=== PATIENT | female | born 1955 | race African-American/Black ===

== ENCOUNTER 2018-07-28 07:46 | Observation (INO) | payer MEDICARE, BC ==
[~2018-07-28] VITALS: Ht 162.6 cm; Wt 85.0 kg
[~2018-07-28 07:46] MED LIST: AMLODIPINE5 MG PO; AMOXIL250 MG/5 M PO; GABAPENTIN300 MG PO; HYDROCHLORO25 MG/TAB PO; HYDROCHLOROT25 MG PO; LISINOP/HCTZ1 TA1 PO; LISINOPRIL10 MG PO; LISINOPRIL20 M1 PO; LOPRESSOR 550 MG/TAB PO; LORTAB 7.57.5 MG PO; PREDNISONE20 MG PO; ROBITUSSIN AC10 ML PO; TRAMADOL HCL50 MG PO; VENTOLIN HFA IN; catapres PO
--- NOTE | 2018-07-28 07:56 | NUR ---
PATIENT TO ROOM VIA EMS AND PHYSICIAN NOTIFIED OF PATIENT STATUS
[2018-07-28 08:33] LABS: IMMATURE GRANULOCYTES 0.3 % (0.0-5.0); MEAN CELL VOLUME 84.1 fL CALC (80.0-100.0); MEAN CORPUSCULAR HGB 26.8 pG CALC (26.0-32.0); MEAN CORPUSCULAR HGB CONC 31.9 g/L CALC (32.0-36.0); NEUT# 7.39 thou/uL (2.00-7.15); RED BLOOD COUNT 5.03 mill/uL (4.20-5.60); RED CELL DISTRI WIDTH 16.9 % (11.5-15.5)
[2018-07-28 08:39] LABS: HEMATOCRIT 42.3 % (37.0-47.0); HEMOGLOBIN 13.5 g/dl (12.0-16.0)
[2018-07-28 08:40] LABS: URINE BILIRUBIN - DIPSTICK NEGATIVE (NEGATIVE); URINE BLOOD DIPSTICK SMALL (NEGATIVE); URINE COLOR YELLOW; URINE GLUCOSE - DIPSTICK NEGATIVE (NEGATIVE); URINE KETONE NEGATIVE (NEGATIVE); URINE LEUK ESTERASE NEGATIVE (NEGATIVE); URINE NITRITE - DIPSTICK NEGATIVE (Negative); URINE PH 6.5 (4.5-8.0); URINE PROTEIN - DIPSTICK 30 mg/dL (NEG-TRACE); URINE SPECIFIC GRAVITY 1.015; URINE UROBILINOGEN - DIPSTICK 0.2 E.U./dL (0.2)
[2018-07-28 08:58] LABS: ALKALINE PHOSPHATASE 89 u/l (38-126); BUN 12 mg/dL (8-23); BUN/CREATININE RATIO 24 (12-20 (CALC)); CARBON DIOXIDE 25 mmol/l (22-30); CHLORIDE 104 mmol/l (95-108); CREATININE 0.5 mg/dL (0.5-1.0); GFR > 60 ML/MIN (>=60 (CALC)); GFR FOR AFR.AMER. > 60 ML/MIN (>=60 (CALC)); LIPASE 57 u/l (23-300); SGOT/AST 15 u/l (9-36); SODIUM 140 mmol/l (137-146); TOTAL PROTEIN 7.6 g/dL (6.3-8.2)
[2018-07-28 08:59] LABS: URINE SQUAMOUS EPITHELIAL CELL FEW EPI/hpf (0-FEW)
--- NOTE | 2018-07-28 09:00 | NUR ---
PATIENT RESTING AWAITING LAB AND RADIOLOGY RESULTS. PATIENT STATES NAUSEA DECREASED.
[2018-07-28 09:01] LABS: ALBUMIN 4.4 g/dL (3.2-5.0); ANION GAP 15 (6-22 (CALC)); BILIRUBIN, TOTAL 0.4 mg/dL (0.0-1.4); POTASSIUM 3.8 mmol/l (3.5-5.1)
--- NOTE | 2018-07-28 10:00 | NUR ---
PATIENT RESTING AWAITNG RADIOLOGY RESULTS PATIENT STATES PAIN 5 ON 0-10 SCALE
--- NOTE | 2018-07-28 10:51 | NUR ---
PATIENT RESTING AWAITNG DISPOSITION. PATIENT STATES PAIN IMPROVED SLIGHTYL FROM BEING PREVIOUSLY MEDICATED PAIN 5 ON 0-10 SCALE. MD NOTIFIED
--- NOTE | 2018-07-28 11:45 | NUR ---
ATTEMPTED TO CALL REPORT PATIENT UNAVAILABLE
--- NOTE | 2018-07-28 12:08 | NUR ---
SECOND ATTEMPT TO CALL REPORT NURSE STILL IN ANOTHER [facility] ROOM AND UNABLE TO COME TO THE PHONE
--- NOTE | 2018-07-28 12:25 | NUR ---
REPORT CALLED TO MED SURG
[2018-07-28 12:39] VITALS: BP 180/89
--- NOTE | 2018-07-28 12:48 | NUR ---
REPORT RECEIVED FROM CAR IN ED, PT ARRIVED ON UNIT @ 1232 VIA STRETCHER BY ED STAFF, ALERT AND ORIENTED X 4, ORIENTED TO ROOM AND CALL WHITE. PT C/O ABD PAIN AT 10/10 AT THIS TIME, VITAL SIGNS MEASURED AND RECORDED, CALL WHITE IN REACH, WILL CONTINUE TO MONITOR.
[2018-07-28 15:30] VITALS: BP 130/77
--- NOTE | 2018-07-28 17:40 | NUR ---
DR LEGGETT HERE ROUNDING, DISCUSSED PLAN OF CARE TO GIVE IV FLUIDS AND ANALGESICS WHICH HE WILL PROCESS.
--- NOTE | 2018-07-28 17:52 | NUR ---
DR LEGGETT HERE ROUNDING, DISCUSSED PLAN OF CARE AND WRITING ORDERS AT THIS TIME. PT JUST HAD EPISODE VOMITUSMD AWARE AND WILL ADDRESS CONDITION.
[2018-07-28 18:21] LABS: CHOLESTEROL HDL RATIO 3.3 (<4.4 (CALC))
[2018-07-28 18:29] VITALS: BP 155/69
--- NOTE | 2018-07-28 19:23 | NUR ---
DR. LEGGETT PLACED CONSULTATION IN FOR WITH THIS PATIENT. CLIENT PORTFOLIO MANAGER CALLED REGARDING PT AT [phone]. GAVE HIM NAME, DIAGNOSIS, AND ROOM NUMBER. DR. SNYDER STATED HE WILL LOOK AT ALL THE TESTS ON PATIENT.
--- NOTE | 2018-07-28 19:33 | NUR ---
REPORT RECEIVED FROM YULI DOMÍNGUEZ. PT RESTING IN BED, ALERT AND ORIENTED, PT STATES HER PAIN IS MUCH BETTER AND IS NOW ONLY A 2/10. SAFETY PRECAUTIONS IN PLACE. PT ENCOURAGED TO USE CALL WHITE. WILL CONTINUE TO MONITOR.
[2018-07-28 19:45] VITALS: BP 144/89
--- NOTE | 2018-07-28 20:30 | NUR ---
PT RESTING IN BED, ALERT AND ORIENTED. RESPIRATIONS EVEN AND UNLABORED ON RA, LUNGS SOUND COARSE. TELE IN PLACE. # 22 LFA IN FUSSING D5 1/2 NS @ 125. PEDAL PULSES STRONG. PT EDUCATED ON NPO DIET. SAFETY PRECAUTIONS IN PLACE. WILL CONTINUE TO MONITOR.
[2018-07-28 22:14] VITALS: BP 129/76
[2018-07-29] VITALS (8 sets, daily range): BP systolic 104–152; BP diastolic 60–87
--- NOTE | 2018-07-29 00:31 | NUR ---
PT RESTING IN BED, WITH EYES CLOSED. RESPIRATIONS EVEN AND UNLABORED ON RA. NO S/S OF DISTRESS AT THIS TIME. WILL CONTINUE TO MONITOR.
--- NOTE | 2018-07-29 04:18 | NUR ---
PT RESTING IN BED. RESPIRATIONS EVEN AND UNLABORED ON RA. NO S/S OF DISTRESS AT THIS TIME. WILL CONTIUE TO MONITOR.
[2018-07-29 05:00] LABS: HEMOGLOBIN 11.6 g/dl (12.0-16.0); IMMATURE GRANULOCYTES 0.3 % (0.0-5.0); MEAN CELL VOLUME 83.6 fL CALC (80.0-100.0); MEAN CORPUSCULAR HGB 26.9 pG CALC (26.0-32.0); MEAN CORPUSCULAR HGB CONC 32.1 g/L CALC (32.0-36.0); NEUT# 4.14 thou/uL (2.00-7.15); RED BLOOD COUNT 4.32 mill/uL (4.20-5.60); RED CELL DISTRI WIDTH 17.1 % (11.5-15.5)
[2018-07-29 05:11] LABS: ALKALINE PHOSPHATASE 58 u/l (38-126); ANION GAP 13 (6-22 (CALC)); BILIRUBIN, TOTAL 0.4 mg/dL (0.0-1.4); BUN 14 mg/dL (8-23); BUN/CREATININE RATIO 21 (12-20 (CALC)); CARBON DIOXIDE 25 mmol/l (22-30); CHLORIDE 103 mmol/l (95-108); CREATININE 0.7 mg/dL (0.5-1.0); GFR > 60 ML/MIN (>=60 (CALC)); GFR FOR AFR.AMER. > 60 ML/MIN (>=60 (CALC)); POTASSIUM 3.6 mmol/l (3.5-5.1); SGOT/AST 24 u/l (9-36); SODIUM 138 mmol/l (137-146)
[2018-07-29 05:13] LABS: HEMATOCRIT 36.1 % (37.0-47.0)
[2018-07-29 05:26] LABS: ALBUMIN 3.3 g/dL (3.2-5.0); TOTAL PROTEIN 5.9 g/dL (6.3-8.2)
--- NOTE | 2018-07-29 07:55 | NUR ---
ASSESSMENT DONE. PT IS A&O X3. PT STATED PAIN IN ABD 10/04. MEDICATED PT WITH DILAUDID SEE EMAR. IVF INFUSING WELL. PT NPO. TELE IN PLACE. SAFETY PRECAUTIONS REINFORCED AND CALL LIGHT IN REACH.
--- NOTE | 2018-07-29 09:31 | NUR ---
DR. SNYDER AT BEDSIDE TO ASSESS PT.
--- NOTE | 2018-07-29 10:29 | NUR ---
PT DOWN IN X-RAY AT THIS TIME.
--- NOTE | 2018-07-29 16:15 | NUR ---
PT IS RESTING IN BED WITH NO S/S OF DISTRESS NOTED. ARMS ELEVATED IN PILLOWS. CALL LIGHT IN REACH.
--- NOTE | 2018-07-29 16:20 | NUR ---
PT USING THE BSC. PT STATED PAIN IN ABD 08/04. TOLD PT PAIN MEDICATION IS NOT DUE YET. PT VERBALIZED UNDERSTANDING. PT DENIES ANY OTHER NEEDS AT THIS TIME. CALL LIGHT IN REACH.
--- NOTE | 2018-07-29 19:10 | NUR ---
REPORT RECEIVED FROM YULI REDMAN. PT RESTING IN BED. ALERT AND ORIENTED. NO S/S OF DISTRESS AT THIS TIME. WILL CONTINUE TO MONITOR.
--- NOTE | 2018-07-29 20:00 | NUR ---
PT RESTING IN BED, ALERT AND ORIENTED. REPIRATIONS EVEN AND UNLABORED ON RA, LUNGS SOUND COARSE THROUGH OUT. #22 LFA INFUSING D5 1/2 NS @ 125 ML/HR, APPEARS HEALTHY. TELE IN PLACE. PT ENCOURAGED TO USE CALL WHITE IF NEEDS SHOULD ARISE. SAFETY PRECAUTIONS IN PLACE. WILL CONTINUE TO MONITOR.
[2018-07-30 00:07] VITALS: BP 113/71
--- NOTE | 2018-07-30 00:57 | NUR ---
PT RESTING IN BED, RESPIRATIONS EVEN AND UNLABORED ON RA, NO S/S OF DISTRESS AT THIS TIME. WILL CONTINUE TO MONITOR.
--- NOTE | 2018-07-30 03:59 | NUR ---
PT RESTING IN BED WITH EYES CLOSED, NO S/S OD DISTRESS AT THIS TIME. SAFETY PRECAUTIONS IN PLACE. WILL CONTINUE TO MONITOR.
[2018-07-30 04:33] VITALS: BP 113/74
[2018-07-30 06:29] LABS: ANION GAP 11 (6-22 (CALC)); BUN 10 mg/dL (8-23); BUN/CREATININE RATIO 15 (12-20 (CALC)); CARBON DIOXIDE 26 mmol/l (22-30); CHLORIDE 105 mmol/l (95-108); CREATININE 0.6 mg/dL (0.5-1.0); GFR > 60 ML/MIN (>=60 (CALC)); GFR FOR AFR.AMER. > 60 ML/MIN (>=60 (CALC)); POTASSIUM 3.7 mmol/l (3.5-5.1); SODIUM 139 mmol/l (137-146)
[2018-07-30 06:36] LABS: HEMATOCRIT 36.6 % (37.0-47.0); HEMOGLOBIN 11.7 g/dl (12.0-16.0); IMMATURE GRANULOCYTES 0.2 % (0.0-5.0); MEAN CELL VOLUME 84.5 fL CALC (80.0-100.0); NEUT# 3.84 thou/uL (2.00-7.15); RED BLOOD COUNT 4.33 mill/uL (4.20-5.60); RED CELL DISTRI WIDTH 17.2 % (11.5-15.5)
--- NOTE | 2018-07-30 07:10 | NUR ---
REPORT WAS RECEIVED FROM RINKU.
[2018-07-30 07:18] VITALS: BP 166/76
--- NOTE | 2018-07-30 08:00 | NUR ---
ASSESSMENT DONE. PT IS A&O X3. PT STATED PAIN IN ABD 06/04 BUT DENIES PAIN MEDICATION. IVF INFUSING WELL. PT DENIES ANY NEEDS AT THIS TIME. CALL LIGHT IN REACH.
[2018-07-30] MEDS ORDERED: catapres PO (08:26)
[2018-07-30] MEDS ORDERED: APRESOLINE10 MG PO (08:26)
[2018-07-30] MEDS ORDERED: PROTONIX40 M3 IV (08:27)
[2018-07-30 10:55] VITALS: BP 156/79
--- NOTE | 2018-07-30 10:56 | NUR ---
DISCUSS WITH PT RE: HER D/C PAPERS. PT VERBALIZED UNDERSTANDING. PT STATED WAITING FOR HER RIDE TO COME. CALL LIGHT IN REACH.
--- NOTE | 2018-07-30 11:20 | NUR ---
PT AMBUALTING IN THE HALLWAY WITH STEADY GAIT. WITH PET FEEDER AT SIDE. CALL LIGHT IN REACH.
--- NOTE | 2018-07-30 12:10 | NUR ---
Discharge instructions given. Patient verbalizes understanding of same. Discharged in stable condition via Wheelchair to Home with volunteer. All belongings sent with pt.
== END 2018-07-30 12:13 | disposition home or self-care (01) ==
LOC: ED 07:46 → ED-I 10:14 → ED 11:05 → MS2 11:06
PROVIDERS: Emergency Medicine; ADMIT Internal Medicine Geriatric Medicine; ATTEND Internal Medicine Geriatric Medicine
PROC: 3E0234Z Introduction of Serum, Toxoid and Vaccine into Muscle, Percutaneous Approach (ICD-10-PCS; principal; 2018-07-29)
DX: K42.0 Umbilical hernia with obstruction, without gangrene (principal); I13.0 Hypertensive heart and chronic kidney disease with heart failure and stage 1 through stage 4 chronic kidney disease, or unspecified chronic kidney disease; I50.30 Unspecified diastolic (congestive) heart failure; N18.9 Chronic kidney disease, unspecified; I25.10 Atherosclerotic heart disease of native coronary artery without angina pectoris; K29.70 Gastritis, unspecified, without bleeding; T46.5X6A Underdosing of other antihypertensive drugs, initial encounter; F17.200 Nicotine dependence, unspecified, uncomplicated; J20.9 Acute bronchitis, unspecified; J44.0 Chronic obstructive pulmonary disease with (acute) lower respiratory infection; M17.0 Bilateral primary osteoarthritis of knee; Z91.120 Patient's intentional underdosing of medication regimen due to financial hardship; Z23 Encounter for immunization
CPT/HCPCS: Q9967; S0164

== ENCOUNTER 2019-06-10 13:34 | Inpatient (IN) | payer MEDICARE, MEDICAID ==
[2019-06-10] VITALS (12 sets, daily range): BP systolic 168–205; BP diastolic 98–110
[~2019-06-10] VITALS: Ht 162.6 cm; Wt 84.1 kg
[~2019-06-10 13:34] MED LIST changes: +APRESOLINE10 MG PO; +PROTONIX40 M3 IV
--- NOTE | 2019-06-10 13:46 | NUR ---
PT TO ROOM PER EMS
--- NOTE | 2019-06-10 14:20 | NUR ---
UNABLE TO ESTABLISH IV ACCESS AFTER MX ATTEMPTS. EDP UPDATED. PT C/O RLQ PAIN 10/10 AND NAUSEA. PT STATES SHE HAS NOT TAKEN BP MEDS TODAY. DENIES CP OR SOB.
--- NOTE | 2019-06-10 14:33 | NUR ---
REPEAT BP AFTER 1 SL NITRO 219/116. EDP MADE DECISION TO INSERT CENTRAL LINE
--- NOTE | 2019-06-10 14:42 | NUR ---
NITRO SL 3 GIVEN PER PROTOCOL. NO NOTABLE CHANGE TO BP. EDP INFORMED.
--- NOTE | 2019-06-10 15:00 | NUR ---
DR RADFORD INSERTED RIJ TRIPLE LUMEN CENTRAL LINE WIHTOUT DIFFICULTY. PT TOLERATED FAIR, EMESIS BRIGHT YELLOW X1, SAT IN HIGH FOWLERS POSITION AND TOLEARTED WELL. MEDICATED ORDERED FOR PAIN AND NAUSEA
[2019-06-10 15:13] LABS: HEMATOCRIT 38.6 % (37.0-47.0); HEMOGLOBIN 12.3 g/dl (12.0-16.0); IMMATURE GRANULOCYTES 0.3 % (0.0-5.0); MEAN CELL VOLUME 83.4 fL CALC (80.0-100.0); MEAN CORPUSCULAR HGB 26.6 pG CALC (26.0-32.0); MEAN CORPUSCULAR HGB CONC 31.9 g/dL CAL (32.0-36.0); NEUT# 7.8 thou/uL (2.00-7.15); RED BLOOD COUNT 4.63 mill/uL (4.20-5.60); RED CELL DISTRI WIDTH 16.4 % (11.5-15.5)
[2019-06-10 15:21] LABS: URINE BILIRUBIN - DIPSTICK NEGATIVE (NEGATIVE); URINE BLOOD DIPSTICK SMALL (NEGATIVE); URINE COLOR YELLOW; URINE GLUCOSE - DIPSTICK NEGATIVE (NEGATIVE); URINE KETONE NEGATIVE (NEGATIVE); URINE LEUK ESTERASE NEGATIVE (NEGATIVE); URINE NITRITE - DIPSTICK NEGATIVE (Negative); URINE PROTEIN - DIPSTICK 100 mg/dL (NEG-TRACE); URINE SPECIFIC GRAVITY >=1.030; URINE UROBILINOGEN - DIPSTICK 0.2 E.U./dL (0.2)
[2019-06-10 15:31] LABS: URINE SQUAMOUS EPITHELIAL CELL FEW EPI/hpf (0-FEW); URINE WBC 0-2 WBC/hpf (0-5)
[2019-06-10 15:32] LABS: ALBUMIN 3.9 g/dL (3.2-5.0); ALKALINE PHOSPHATASE 84 u/l (38-126); ANION GAP 9 (6-22 (CALC)); BILIRUBIN, TOTAL 0.5 mg/dL (0.0-1.4); BUN 12 mg/dL (8-23); BUN/CREATININE RATIO 23 (12-20 (CALC)); CARBON DIOXIDE 30 mmol/l (22-30); CHLORIDE 101 mmol/l (95-108); CREATININE 0.5 mg/dL (0.5-1.0); GFR > 60 ML/MIN (>=60 (CALC)); GFR FOR AFR.AMER. > 60 ML/MIN (>=60 (CALC)); LIPASE 47 u/l (23-300); POTASSIUM 3.7 mmol/l (3.5-5.1); SGOT/AST 37 u/l (9-36); SODIUM 136 mmol/l (137-146); TOTAL PROTEIN 7.1 g/dL (6.3-8.2)
--- NOTE | 2019-06-10 15:38 | NUR ---
PT RESTING MORE COMFORTABLY AT THIS TIME. DENIES NAUSEA.
--- NOTE | 2019-06-10 15:40 | NUR ---
PT DENIES NAUSEA,EDP UPDATED, PHENERGAN HELD PER EDP.
--- NOTE | 2019-06-10 16:24 | NUR ---
RESTARTED CARDENE GTT AT 5MG/HR. PT DENIES CP,SOB OR NAUSEA. PT STATES "I FEEL SO MUCH BETTER. UPDATED ON POC.
--- NOTE | 2019-06-10 17:13 | NUR ---
#18 FR NG TUBE INSERTED LT NARE WITHOUT DIFFICULTY. RETURNED CLEAR LIGHT GREEN FLUID TO LOW INTERMITTENT SUCTION. MAINTAINING O2 SAT 97% ON O2@2LPM VIA NC. PT UPDATED ON POC AND REASON FOR NG TUBE
--- NOTE | 2019-06-10 18:15 | NUR ---
PATIENT RESTING WITHOUT DISTRESS AWAITING ROOM ASSIGNMENT PATIENT RATES PAIN 3 ON 0-10 SCALE
--- NOTE | 2019-06-10 19:00 | NUR ---
PATEINT TRANSPORTED TO ICU
--- NOTE | 2019-06-10 19:00 | NUR ---
PATIENT ARRIVES VIA ER STRETCHER ON PYROGLAZER, SALINE LOCKED, ACCOMPANIED BY 2 ER NURSES. PATIENT IS ALERT AND ORIENTED X4. REPORTS ABDOMINAL PAIN RATES 8 OF 10 AND NAUSEA. LEFT NARE NG TUBE INTCAT, PLACED BACK ON LIS. ARRIVED WITH NIGEL, PLACE ON CHS. RIJ 3 LUMEN INTACT, FLUSHES PROPERLY, SALINE LOCKED. RECEIVED IN REPORT SHE WAS PLACED ON NC 2 L/MIN DUE TO RECEIVING MORPHINE AT ER. PATIENT PLACED ON NC AGAIN AND SATS GREATER THAN 95%, NO SOB NOTED, NO COMPLAINTS OF SOB. ADMISSION COMPLETED. NKA. BED ZEROED BEFORE ARRIVAL, WEIGHT TAKEN 183.1 LBS. NURSING ASSESSMENT PERFORMED. PT REPORTS LAST BM 06/08, PT REPORTS SHE HAS STRESS INCONTINENCE. CALL LIGHT WITHIN REACH.
--- NOTE | 2019-06-10 19:43 | NUR ---
PATIENT'S DAUGHTER CALLED AND PATIENT GAVE ME PERMISSION TO PROVIDE PASSCODE WELL UPDATES.
--- NOTE | 2019-06-10 19:52 | NUR ---
ZOFRAN GIVEN AND IV FLUIDS PROVIDED PER ORDERS.
--- NOTE | 2019-06-10 20:00 | NUR ---
IV PAIN MEDICATION GIVEN FOR C/O ABD PAIN RATES 10/04.
--- NOTE | 2019-06-10 20:19 | NUR ---
PATIENT'S GRAND-DAUGHTER CALLED WHICH SHE IS ON CHART FRACISCO TO NOTIFY IN CASE OF EMERGENCY, GRAND DAUGHTER REPORTS SHE WILL CALL PATIENT I LET HER LNOW PATINT HAS HER CELLPHONE AT BEDSIDE.
--- NOTE | 2019-06-10 20:29 | NUR ---
CALLED AND SPOKE TO DR WISEMAN TO NOTIFY HIM FOR A CONSULT FOR THIS PATIENT FOR A PARTIAL SMALL BOWEL OBSTRUCTION.
--- NOTE | 2019-06-10 21:51 | NUR ---
PATIENT ASSISTED TO BSC, PT REPORTS SHE HAD TO HAVE A BM. PT DID NOT HAVE A BM, ONLY VOIDED. SHE WAS ABLE TO CLEAN HERSELF. PUT A DISPOSABLE PAD LINER AND NETTED UNDERWEAR ON, PURE WICK PLACED BACK ON. DAUGHTER ALSO CALLED FOR UPDATES AT THIS TIME, SHE WAS ABLE TO PROVIDE PASSCODE.
--- NOTE | 2019-06-10 22:27 | NUR ---
PATIENT'S SISTER CALLED FOR INFO ON PATIENT, PT WAS ASKED IF SHE GIVES PERMISSION FOR ME TO UPDATE HER SISTER, PATIENT CONSENTS. UPDATE GIVEN TO SISTER.
[2019-06-11] VITALS (54 sets, daily range): BP systolic 116–204; BP diastolic 67–112
--- NOTE | 2019-06-11 00:22 | NUR ---
PATIENT WAS GIVEN PAIN AND NAUSEA MEDIACTION. COMPLAINS OF ABD PAIN RATES IT 8/10. ANTIBIOTIC ALSO INFUSING NOW PER MD ORDER. NICARDIPINE DRIP TITRATED PER PROTOCOL. NG TUBE PLACEMENT ALSO VERIFIED, BROWN/TEA COLORED WITH FOOD PARTICLES DRAINING OUT. NO OTHER NEEDS AT THIS TIME. CALL LIGHT WITHIN REACH.
--- NOTE | 2019-06-11 02:20 | NUR ---
PATIENT LAYS WITH HOB 30 DEGREES. NICARDIPINE DRIP TITRATED PER PROTOCOL. PT RESTS WITH EYES CLOSED, AWAKENS EASILY WITH VERBAL STIMULI. NO ACUTE DISTRESS SHOWN. CALL LIGHT WITHIN REACH.
--- NOTE | 2019-06-11 02:59 | NUR ---
PATIENT ENVIRONMENTAL AID LIGHT, REQUESTED PAIN MEDICATION, EXPLAINED PAIN MEDICATION FREQUENCY, PATIENT UNDERSTANDS AND AGREES. WILL MEDICATE SOON DUE. PATIENT PULLED HERSELF UP. PUREWICK INTACT, NG TUBE INTACT. CALL LIGHT WITHIN REACH.
--- NOTE | 2019-06-11 03:58 | NUR ---
PATIENT PROVIDED WITH PAIN MEDICATION WELL NAUSEA MEDIACTION, PT DID BEGIN TO DRY HEAVE AND ONLY VOMITTED CLEAR/WHITE SALIVA. WET WASH CLOTH PROVIDED TO WIPE HER MOUTH. AFEBRILE. CALL LIGHT WITHIN REACH.
--- NOTE | 2019-06-11 04:46 | NUR ---
BLOOD DRAWN FROM [facility] TRIPLE LUMEN.
[2019-06-11 04:55] LABS: HEMATOCRIT 38.7 % (37.0-47.0); HEMOGLOBIN 12.6 g/dl (12.0-16.0); IMMATURE GRANULOCYTES 0.4 % (0.0-5.0); MEAN CELL VOLUME 82.9 fL CALC (80.0-100.0); MEAN CORPUSCULAR HGB CONC 32.6 g/dL CAL (32.0-36.0); NEUT# 7.6 thou/uL (2.00-7.15); RED BLOOD COUNT 4.67 mill/uL (4.20-5.60); RED CELL DISTRI WIDTH 16.2 % (11.5-15.5)
[2019-06-11 05:08] LABS: ANION GAP 8 (6-22 (CALC)); BUN 10 mg/dL (8-23); BUN/CREATININE RATIO 17 (12-20 (CALC)); CARBON DIOXIDE 30 mmol/l (22-30); CHLORIDE 100 mmol/l (95-108); CREATININE 0.6 mg/dL (0.5-1.0); GFR > 60 ML/MIN (>=60 (CALC)); GFR FOR AFR.AMER. > 60 ML/MIN (>=60 (CALC)); POTASSIUM 3.5 mmol/l (3.5-5.1); SODIUM 136 mmol/l (137-146)
--- NOTE | 2019-06-11 05:30 | NUR ---
PT SITS UP ON SIDE OF BED, DRY HEAVING, ONLY SPITS OUT SALIVA. ASSISTED BACK IN BED. SECURED NG TUBE ON NARE, INTACT AT LIS, PUREWICK INTACT AT [facility]. NO OTHER NEEDS AT THIS TIME. CALL LIGHT WITHIN REACH.
--- NOTE | 2019-06-11 07:45 | NUR ---
PT RESTING IN BED. PT ON CARDENE GTT TO MAINTAIN SBP <180. PT STATING SHE HAS PAIN IN ABDOMEN. PAIN MEDS TO BE GIVEN. PT COMPLAINING OF NAUSEA. NAUSEA MEDICATIONS TO BE GIVEN. PUREWHICH IN PLACE. NG TUBE IN PLACE. PT TURNS SELF. WILL CONTINUE TO MONITOR.
--- NOTE | 2019-06-11 08:40 | NUR ---
DR. SNYDER AT BEDSIDE TO ASSESS PT. PLAN FOR SURGERY TODAY. WILL CALL DAUGHTER JET AND UPDATE HER.
--- NOTE | 2019-06-11 08:47 | NUR ---
DR. GARCIA AT BEDSIDE TO ASSESS PT
--- NOTE | 2019-06-11 09:00 | NUR ---
SPOKE TO DAUGHTER JET AND UPDATED HER OF PT DIAGNOSIS AND PLAN FOR SURGERY TODAY, DAUGHTER VERBALIZED UNDERSTANDING. ALL QUESTIONS ANSWERED.
--- NOTE | 2019-06-11 09:27 | NUR ---
OR NURSE TRANSFERRED PT TO OR. PT ON OXYGEN, MEDICATION CHART AND CONSENT SENT WITH PATIENT. PT VERBALIZED UNDERSTANDING OF PROCEDURE/SURGERY. CONSENT SIGNED. PT A&O X 4. CARDENE GTT SENT WITH PATIENT.
[2019-06-11] MEDS ORDERED: TRAMADOL HCL50 MG PO (09:40)
[2019-06-11] MEDS ORDERED: LOPRESSOR50 M1 PO (09:41)
--- NOTE | 2019-06-11 11:14 | NUR ---
SPOKE TO SON AND UPDATED HIM ON PATIENT STATUS. UPDATED HIM THAT PT IS CURRENTLY IN THE OR. ALL QUESTIONS ANSWERED. WILL UPDATE NEEDED
--- NOTE | 2019-06-11 12:15 | NUR ---
PT BACK TO ICU5 FROM OR. PT ON 2LNC. NO DISTRESS NOTED. PT DROWSY, ABLE TO ANSWER QUESTIONS AND FOLLOW COMMANDS APPROPRIATELY. PT RECEIVED WITHOUT CARDENE GTT RUNNING. PER OR NURSE CARDENE GTT WAS NOT ADMINISTERED DURING SURGERY OR PACU. BLOOD PRESSURE 203/104. CARDENE GTT RESTARTED.
--- NOTE | 2019-06-11 12:30 | NUR ---
PT STATING SHE HAS PAIN. PT VERY DROWSY. PT REPOSITIONED FOR COMFORT. EDUCATED PATEINT THAT SHES TOO DROWSY FOR PAIN MEDS AT THIS TIME. AFTER REPOSITIONED PT FEELS BETTER. WILL CONTINUE TO MONITOR.
--- NOTE | 2019-06-11 12:52 | NUR ---
SPOKE TO DAUGHTER JET AND UPDATED HER ON PATIENT CONDITION. INFORMED HER THAT PATIENT IS STABLE, THE SURGERY WENT WELL, PT BACK TO ICU5, PT ON NC, PT ABLE TO ANSWER QUESTIONS, MONITORING BP. NOTIFIED HER THAT PATIENT PHONE IS CURRENTLY AND WILL BE CHARGED AND GIVEN TO PATIENT. DAUGHTER SAID SHE WILL CALL PATIENT SON AND SISTER TO GIVE THEM UPDATES.
--- NOTE | 2019-06-11 14:16 | NUR ---
PT RESTING IN BED WITH EYES CLOSED. PT SNORING. NO DISTRESS OR SOB NOTICIED. WILL CONTINUE TO MONITOR.
--- NOTE | 2019-06-11 15:38 | NUR ---
PT COMPLAINING OF SHARP IN AT INCISION SITE. PT TOO DROWSY FOR NARCOTICS AT THIS TIME. DR. GARCIA NOTIFIED. TORADOL ORDERED. WILL CONTINUE TO MONITOR.
--- NOTE | 2019-06-11 16:10 | NUR ---
PT STATED LAST TIME SHE TOOK HER BLOOD PRESSURE MEDICATIONS WAS TWO DAYS AGO. PATIENT STATED SHE ONLY USES [facility] FOR MEDICATION. PER MEDICATION RECONCILIATION LAST TUMBLING INSTRUCTOR WAS 11/05/18. PHARMACIST RADHA NOTIFIED.
--- NOTE | 2019-06-11 16:15 | NUR ---
PT RESTING IN BED WITH EYES CLOSED. PT OPENS EYES TO SPEECH. PT ABLE TO ANSWER ORIENTATION QUESTION. PT VERY DROWSY WHEN NO STIMULATED. CARDENE GTT RUNNING. NO SOB NOTED. NO DISTRESS NOTED. WILL CONTINUE TO MONITOR.
--- NOTE | 2019-06-11 16:43 | NUR ---
SPOKE TO DAUGHTER JET AND UPDATED HER ON PATIENT STATUS. ASKED DAUGHTER IF SHE WAS AWARE IF PATIENT IS CURRENTLY TAKING HER BP MEDICATIONS; HOWEVER, THE DAUGHTER HAS NOT PERSONALY SEEN THE PATIENT TAKE THEM. DAUGHTER ASKED TO BE NOTIFIED WHEN PATIENT IS BEING DISCHARGED AND TO LET HER KNOW WHAT HER BLOOD PRESSURE MEDICATIONS ARE SO SHE CAN MAKE SURE PATIENT TAKES THEM. DAUGHTER ASKED FOR PATIENT CELL PHONE TO BE TURNED OFF/SILENCED FOR PATIENT TO GET REST.
--- NOTE | 2019-06-11 18:38 | NUR ---
PT RESTING IN BED. PT MORE ALERT; HOWEVER, STILL DROWSY. CARDENE GTT ON. ANGELES, NO BM TODAY. ICE CHIPS GIVE TO PATIENT. NO DISTRESS NOTED. NO SOB NOTED. REPORT TO BE GIVEN TO NIGHT RN
--- NOTE | 2019-06-11 19:17 | NUR ---
ATTEMPTED TO EDUCATED PATIEND ON IS. PT ASLEEP
--- NOTE | 2019-06-11 19:41 | NUR ---
PATIENT AWAKE, ALERT AND ORIENTED X4. COMPLAINS OF PAIN, RATES 8/10, SHARP ON LEFT SIDE ABDOMEN, 3 LEFT SITE ABD INCISION SITES INTACT, NO DRAINAGE NOTED. NO REDNESS OR TENDERNESS NOTED. ON NC 1 L/MIN, SATS GREATER THAN 95%, NO SOB NOTED. RIJ 3 LUMEN INTACT, NS AND CARDENE DRIP INFUSING PROPERLY. CARDENE DRIP TITARTED PER PROTOCOL. REYNOSO CATHETER INTACT AND PATIENT EDUCATED ON IT, DRAINS YELLOW/CLEAR URINE. EDUCATE ON NPO AND ICE CHIPS AND MEDS PERMITTED. EDUCATED ON IS. SCD'S PLACED ON. SR ON TELEMETRY. TEMP 99.0. CALL LIGHT WITHIN REACH.
--- NOTE | 2019-06-11 19:50 | NUR ---
IV PAIN MEDICATION GIVEN PER REQUEST.
--- NOTE | 2019-06-11 21:52 | NUR ---
PATIENT'S DAUGHTER CALL HERE AND UPDATES GIVEN.
--- NOTE | 2019-06-11 22:25 | NUR ---
PATIRNT LAYS WITH HOB 30 DEGREES, AWAKENS WITH NOISE, IS DROWSY, NO COMPLAINTS OF PAIN, NOTIFIED HER OF DAUGHTER CALLING A LEACING A MESSAGE FOR HER, SISTER IN LAW CALLED WELL AND LEFT A MESSAGE FOR HER. NO OTHER NEEDS AT THIS TIME. CALL LIGHT WITHIN REACH.
--- NOTE | 2019-06-11 23:41 | NUR ---
PATIENT TYPEWRITER RIBBON WINDER LIGHT, CONCERNED ABOUT MONITOR BEEPING, NURSE MAXI EXPLAINED WHY. I WENT IN ROOM SHORTLY AFTER AND SHE ASKED ME WHY THE MONITOR WAS NOT WORKING, I EXPLAINED TO HER SHE WAS HAVING PVC'S AND THAT IS WHY IT WAS BEEPING, SHE ASKED, "AM I DYING?" I TOLD HER SHE WAS NOT DYING, SHE WAS STABLE. PATIENT IS ORIENTED X4. PT REQUESTED PAIN MEDICATION FOR PAIN RATE OF 6/10. PAIN MEDICATION PROVIDED, REQUESTED ICE CHIPS, PROVIDED. CALL LIGHT WITHIN REACH.
[2019-06-12] VITALS (19 sets, daily range): BP systolic 140–202; BP diastolic 64–118
--- NOTE | 2019-06-12 02:19 | NUR ---
NEW BAG OF IV FLUIDS INFUSING. PATIENT AWAKENS EASILY WITH VERBAL STIMULI, NO NEEDS AT THIS TIME. NO ACUTE DISTRESS SHOWN. CALL LIGHT WITHIN REACH.
--- NOTE | 2019-06-12 05:03 | NUR ---
PAIN MEDICATION GIVEN TO PATIENT PER REQUEST, RATES ABD PAIN 10/04. BLOOD DRAWN FROM [facility] FOR LABS THIS AM. NO OTHER NEEDS AT THIS TIME. CALL LIGHT WITHIN REACH.
[2019-06-12 05:14] LABS: HEMATOCRIT 36.6 % (37.0-47.0); HEMOGLOBIN 11.5 g/dl (12.0-16.0); IMMATURE GRANULOCYTES 0.3 % (0.0-5.0); MEAN CELL VOLUME 85.1 fL CALC (80.0-100.0); MEAN CORPUSCULAR HGB 26.7 pG CALC (26.0-32.0); MEAN CORPUSCULAR HGB CONC 31.4 g/dL CAL (32.0-36.0); NEUT# 5.91 thou/uL (2.00-7.15); RED BLOOD COUNT 4.3 mill/uL (4.20-5.60); RED CELL DISTRI WIDTH 16.6 % (11.5-15.5)
[2019-06-12 05:40] LABS: ALKALINE PHOSPHATASE 63 u/l (38-126); ANION GAP 7 (6-22 (CALC)); BILIRUBIN, TOTAL 0.7 mg/dL (0.0-1.4); BUN 10 mg/dL (8-23); BUN/CREATININE RATIO 14 (12-20 (CALC)); CARBON DIOXIDE 30 mmol/l (22-30); CHLORIDE 103 mmol/l (95-108); CREATININE 0.7 mg/dL (0.5-1.0); GFR > 60 ML/MIN (>=60 (CALC)); GFR FOR AFR.AMER. > 60 ML/MIN (>=60 (CALC)); POTASSIUM 3.4 mmol/l (3.5-5.1); SGOT/AST 42 u/l (9-36); SODIUM 137 mmol/l (137-146); TOTAL PROTEIN 5.8 g/dL (6.3-8.2)
[2019-06-12 05:42] LABS: ALBUMIN 3.1 g/dL (3.2-5.0)
--- NOTE | 2019-06-12 06:36 | NUR ---
PATIENT RESTS WITH EYES CLOSED. NO ACUTE DISTRESS SHOWN. CALL LIGHT WITHIN REACH.
--- NOTE | 2019-06-12 07:52 | NUR ---
EVS IN ROOM. PT SLEEPING. NO S/S OF DISTRESS AT THIS TIME. WILL CONTINUE TO MONITOR.
--- NOTE | 2019-06-12 08:23 | NUR ---
DR GARCIA @BEDSIDE. PT A&Ox3. DENIES PAIN AT THIS TIME. 3 SMALL LAPERSCOPIC WOUNDS TO LEFT ABD. ACTIVE BS x4.
--- NOTE | 2019-06-12 08:50 | NUR ---
pt assisted up to bsc for bm. pt passing gas frequently.
--- NOTE | 2019-06-12 10:11 | NUR ---
GAVE PT TV CHANNEL GUIDE. NO NEW NEEDS/CONCERNS AT THIS TIME. WILL CONTINUE TO MONITOR.
--- NOTE | 2019-06-12 11:45 | NUR ---
DR SNYDER @BEDSIDE TO DISCUSS PROCEDURE RESULTS & POC.
--- NOTE | 2019-06-12 12:31 | NUR ---
DR GARCIA NOTIFIED OF HR 47-58. NICARDIPINE DRIP OFF.
--- NOTE | 2019-06-12 13:24 | NUR ---
PT ASSISTED UP TO BSC FOR URINATION & MODERATE FORMED BM.
--- NOTE | 2019-06-12 13:38 | NUR ---
PT REFUSING BEDSIDE BATH, STATES SHE WANTS TO GO TAKE A SHOWER.
--- NOTE | 2019-06-12 14:40 | NUR ---
PT C/O ABD PAIN BUT THIS RN DOES NOT THINK MORE DILAUDID WOULD BE SAFE. PT IS STILL VERY GROGGY & WEAK & BRADYCARDIC FROM LAST DOSE AT 0938. CONSULTED FOR MED CHANGE.
--- NOTE | 2019-06-12 15:35 | NUR ---
PT SLEEPING ON BED. NO S/S OF DISTRESS. WILL CONTINUE TO MONITOR.
--- NOTE | 2019-06-12 17:48 | NUR ---
PT TRANSFERED TO [facility] BY BED IN STABLE CONDITION, WITH ALL BELONGINGS & MEDICATIONS.
--- NOTE | 2019-06-12 19:05 | NUR ---
REPORT RECEIVED FROM YULI HANLEY. PT RESTING IN BED NO S/S OF DISTRESS AT THIS TIME. SAFETY PRECAUTIONS IN PLACE. WILL CONTINUE TO MONITOR.
--- NOTE | 2019-06-12 20:10 | NUR ---
PT RESTING IN BED, ALERT AND ORIETNED. PT ASSISTED TO BSC AND BACK INTO BED. RESPIRATIONS EVEN AND UNLABORED LUNGS SOUND CLEAR. PEDAL PULSES STRONG. PT REPORTS PAIN OF A 9/10 IN ABD, PT TO BE MEDICATED PER EMAR ORDERS. SAFETY PRECAUTIONS IN PLACE. WILL CONTINUE TO MONITOR.
--- NOTE | 2019-06-13 | NUR ---
PT RESTING IN BED. NO S/S OF DISTRESS AT THIS TIME. SAFETY PRECAUTIONS IN PLACE. WILL CONTINEU TO MONITOR.
[2019-06-13 04:15] VITALS: BP 146/62
--- NOTE | 2019-06-13 04:28 | NUR ---
PT RESTING IN BED RESPIRATIONS EVEN AND UNLABORED, TELE IN PLACE. WILL CONTINUE TO MONITOR.
[2019-06-13 05:28] LABS: HEMATOCRIT 32.6 % (37.0-47.0); HEMOGLOBIN 10.2 g/dl (12.0-16.0); MEAN CELL VOLUME 86.2 fL CALC (80.0-100.0); MEAN CORPUSCULAR HGB CONC 31.3 g/dL CAL (32.0-36.0); RED BLOOD COUNT 3.78 mill/uL (4.20-5.60); RED CELL DISTRI WIDTH 16.7 % (11.5-15.5)
[2019-06-13 05:55] LABS: ALBUMIN 2.7 g/dL (3.2-5.0); ALKALINE PHOSPHATASE 53 u/l (38-126); ANION GAP 6 (6-22 (CALC)); BUN 10 mg/dL (8-23); BUN/CREATININE RATIO 14 (12-20 (CALC)); CARBON DIOXIDE 28 mmol/l (22-30); CHLORIDE 106 mmol/l (95-108); CREATININE 0.7 mg/dL (0.5-1.0); GFR > 60 ML/MIN (>=60 (CALC)); GFR FOR AFR.AMER. > 60 ML/MIN (>=60 (CALC)); POTASSIUM 3.3 mmol/l (3.5-5.1); SGOT/AST 23 u/l (9-36); SODIUM 137 mmol/l (137-146); TOTAL PROTEIN 5.3 g/dL (6.3-8.2)
[2019-06-13 05:59] LABS: BILIRUBIN, TOTAL 0.4 mg/dL (0.0-1.4)
[2019-06-13 08:00] VITALS: BP 159/92
--- NOTE | 2019-06-13 09:00 | NUR ---
PT AWAKE, ALERT, ORIENTED X 3. LUNGS CLEAR, RA. PT AMBULATORY TO BSC. PT DOES HAVE SOME ABDOMINAL DISCOMFORT, PAIN MED PROVIDED NEEDED. NO REPORT OF NAUSEA OR VOMITING.
--- NOTE | 2019-06-13 13:00 | NUR ---
PT SEEN BY DR MARTINEZ THIS MORNING, WILL PROBABLY DISCHARGE PT TOMORROW OR SATURDAY. PT OOB NEEDED TO BSC, ENCOURAGED TO BE AMBULATORY IN ROOM MORE.
[2019-06-13 15:10] VITALS: BP 193/96
[2019-06-13 15:34] VITALS: BP 142/78
--- NOTE | 2019-06-13 17:30 | NUR ---
PT REMAINS AT REST IN THE BED, OCCASIONAL REQUEST FOR PAIN MEDICINE. PT HOPES FOR DISCHARGE HOME TOMORROW. GRANDDAUGHTER HAS PICKED UP BULLOCK TO HER HOUSE, WHICH WAS LEFT IN LOBBY FOR HER. NO ACUTE DISTRESS NOTED.
--- NOTE | 2019-06-13 19:06 | NUR ---
REPORT RECEIVED FROM YULI HANLEY. PT RESTING IN BED. NO S/S OF DISTRESS, SAFETY PRECAUTIONS IN PLACE. WILL CONTINUE TO MONITOR.
[2019-06-13 19:37] VITALS: BP 166/81
--- NOTE | 2019-06-13 20:35 | NUR ---
PT RESTING IN BED, ALERT AND ORIENTED. RESPIRATIONS EVEN AND UNLABORED ON O2 @ 2L VIA NC. LUNGS SOUND CLEAR. PEDAL PULSES STRONG. PT REPORTS PAIN OF A 8/10, PT MEDICATED PER EMAR ORDERS. SAFETY PRECAUTIONS IN PLACE. WILL CONTINUE TO MONITOR.
--- NOTE | 2019-06-13 23:54 | NUR ---
PT RESTING IN BED, NO S/S OF DISTRESS AT THIS TIME. SAFETY PRECAUTIONS IN PLACE. WILL CONTINUE TO MONITOR.
--- NOTE | 2019-06-14 04:16 | NUR ---
PT RESTING IN BED, NO S/S OF DISTRESS AT THIS TIME. SAFETY PRECAUTIONS IN PLACE. WILL CONTINUE TO MONTIOR.
[2019-06-14 04:21] VITALS: BP 154/82
[2019-06-14 04:24] VITALS: BP 154/82
[2019-06-14 05:13] LABS: HEMATOCRIT 31.7 % (37.0-47.0); HEMOGLOBIN 10.1 g/dl (12.0-16.0); IMMATURE GRANULOCYTES 0.3 % (0.0-5.0); MEAN CELL VOLUME 85.2 fL CALC (80.0-100.0); MEAN CORPUSCULAR HGB 27.2 pG CALC (26.0-32.0); MEAN CORPUSCULAR HGB CONC 31.9 g/dL CAL (32.0-36.0); NEUT# 3.86 thou/uL (2.00-7.15); RED BLOOD COUNT 3.72 mill/uL (4.20-5.60); RED CELL DISTRI WIDTH 16.6 % (11.5-15.5)
[2019-06-14 05:23] LABS: ALBUMIN 2.8 g/dL (3.2-5.0); ALKALINE PHOSPHATASE 50 u/l (38-126); ANION GAP 7 (6-22 (CALC)); BILIRUBIN, TOTAL 0.3 mg/dL (0.0-1.4); BUN 11 mg/dL (8-23); BUN/CREATININE RATIO 18 (12-20 (CALC)); CARBON DIOXIDE 27 mmol/l (22-30); CHLORIDE 107 mmol/l (95-108); CREATININE 0.6 mg/dL (0.5-1.0); GFR > 60 ML/MIN (>=60 (CALC)); GFR FOR AFR.AMER. > 60 ML/MIN (>=60 (CALC)); SGOT/AST 19 u/l (9-36); SODIUM 137 mmol/l (137-146); TOTAL PROTEIN 5.3 g/dL (6.3-8.2)
[2019-06-14 08:08] VITALS: BP 178/82
--- NOTE | 2019-06-14 09:00 | NUR ---
PT AWAKE, ALERT, NAUSEATED THIS MORNING. PT PROVIDED ZOFRAN FOR NAUSEA, CONTINUES WITH HER BREAKFAST. PT HOPES FOR DISCHARGE TO HOME TOMORROW, ORIGINALLY WANTED TO GO HOME TODAY BUT NOT FEELING WELL ENOUGH.
--- NOTE | 2019-06-14 12:15 | NUR ---
PT EATING LUNCH, STILL SOMEWHAT NAUSEATED. IV ABX INFUSING, NS 125. DAUGHTER JET CALLED FOR AN UPDATE.
[2019-06-14 15:27] VITALS: BP 155/85
--- NOTE | 2019-06-14 18:04 | NUR ---
PT RECEIVED PAIN MED THIS AFTERNOON FOR PERSISTENT ABDOMINAL DISCOMFORT. PT STATES THAT SHE WALKS AROUND THE ROOM WHEN SHE GETS UP TO USE BSC.
[2019-06-14 18:47] VITALS: BP 152/76
--- NOTE | 2019-06-14 19:05 | NUR ---
REPORT RECEIVED FROM YULI HANLEY. PT RESTING IN BED, RESPIRATIONS EVEN AND UNLABORED ON RA. NO S/S OF DISTRESS AT THIS TIME. SAFETY PRECAUTIONS IN PLACE. WILL CONTINUE TO MONITOR.
--- NOTE | 2019-06-14 20:30 | NUR ---
PT RESTING IN BED. RESPIRATIONS EVEN AND UNLABORED ON RA, LUNGS SOUND DIMINISHED. PT DENIES ANY PAIN OR DISCOMFORT AT THIS TIME. PEDAL PULES STRONG. SAFETY PRECAUTIONS IN PLACE. WILL CONTINUE TO MONITOR.
--- NOTE | 2019-06-15 00:20 | NUR ---
PT RESTING IN BED, NO S/S OF DISTRESS AT THIS TIME. SAFETY PRECAUTIONS IN PLACE. WILL CONTINUE TO MONITOR.
--- NOTE | 2019-06-15 04:40 | NUR ---
PT RESTING IN BED. RESPIRATIONS EVEN AND UNLABORED ON RA. NO S/S OF DISTRESS AT THIS TIME. SAFETY PRECAUTIONS IN PLACE. WILL CONTINUE TO MONITOR.
[2019-06-15 05:10] VITALS: BP 147/70
[2019-06-15 06:12] LABS: ANION GAP 6 (6-22 (CALC)); BUN 9 mg/dL (8-23); BUN/CREATININE RATIO 14 (12-20 (CALC)); CARBON DIOXIDE 27 mmol/l (22-30); CHLORIDE 110 mmol/l (95-108); CREATININE 0.6 mg/dL (0.5-1.0); GFR > 60 ML/MIN (>=60 (CALC)); GFR FOR AFR.AMER. > 60 ML/MIN (>=60 (CALC)); POTASSIUM 3.5 mmol/l (3.5-5.1); SODIUM 139 mmol/l (137-146)
[2019-06-15 08:05] VITALS: BP 191/84
--- NOTE | 2019-06-15 08:05 | NUR ---
ASSESSMENT IS COMPLTED: IV SITE IS FREE FROM REDNESS OR EDEMA. HR IS REG,PULSES ARE STRONG X4, ABD IS SOFT WITH ACTIVE BS. BREATH SOUNDS ARE CLEAR AND DIMINISHED.DRESSING ON ABD IS CDI. CONTINUE TO OSEBRVE AND MONITOR.
[2019-06-15] MEDS ORDERED: AMLODIPINE BESYL5 MG PO (09:56)
[2019-06-15] MEDS ORDERED: LISINOPRIL20 M1 PO (09:56)
[2019-06-15] MEDS ORDERED: ZOFRAN4 MG/TAB PO ×2 (09:58)
[2019-06-15] MEDS ORDERED: LORTAB5 PO (09:58)
[2019-06-15 10:30] VITALS: BP 180/100
--- NOTE | 2019-06-15 12:00 | NUR ---
PT IS RELAXING IN BED WAITING FOR DISCHARGE .
[2019-06-15 12:41] VITALS: BP 180/77
--- NOTE | 2019-06-15 14:20 | NUR ---
IV SITE DISCONTINUED CATHETER INTACT BY KATIE ROLDAN. DISCHARGE INSTRUCTIONS TYPED AND READY. CONTINUE TO OBSERVE AND MONITOR.
== END 2019-06-15 14:58 | DRG 337 ==
LOC: ED 13:34 → ED-I 16:30 → ED 16:52 → ICU 16:53 → ED-I 16:53 → ICU 17:03 → MS2 06-12 15:20
PROVIDERS: Family Medicine; Nurse Practitioner Family; ADMIT Internal Medicine; ATTEND Internal Medicine
PROC: 05HM33Z Insertion of Infusion Device into Right Internal Jugular Vein, Percutaneous Approach (ICD-10-PCS; 2019-06-10)
PROC: 0DNA4ZZ Release Jejunum, Percutaneous Endoscopic Approach (ICD-10-PCS; principal; 2019-06-11)
PROC: 0DB84ZX Excision of Small Intestine, Percutaneous Endoscopic Approach, Diagnostic (ICD-10-PCS; 2019-06-11)
DX: K56.51 Intestinal adhesions [bands], with partial obstruction (principal); I16.0 Hypertensive urgency; I10 Essential (primary) hypertension; J44.9 Chronic obstructive pulmonary disease, unspecified; E87.6 Hypokalemia; K63.89 Other specified diseases of intestine; F17.200 Nicotine dependence, unspecified, uncomplicated; T46.5X6A Underdosing of other antihypertensive drugs, initial encounter; Z91.128 Patient's intentional underdosing of medication regimen for other reason; Z11.59 Encounter for screening for other viral diseases
CPT/HCPCS: G0378; Q9967

== ENCOUNTER 2019-12-08 07:12 | Inpatient (IN) | payer MEDICARE, MEDICAID ==
[2019-12-08] VITALS (18 sets, daily range): BP systolic 116–173; BP diastolic 63–114
[~2019-12-08] VITALS: Ht 162.6 cm; Wt 84.0 kg
[~2019-12-08 07:12] MED LIST changes: +AMLODIPINE BESYL5 MG PO; +LOPRESSOR50 M1 PO; +LORTAB5 PO; +ZOFRAN4 MG/TAB PO
--- NOTE | 2019-12-08 07:12 | NUR ---
PT ARRIVES VIA EMS ON BIPAP ALERT IN RESP DISTRESS, RR 55.PT STATES SHE IS NON COMPLIANT WITH BP MEDS. PT STATES SHE AWOKE SOB IN THE NIGHT.
--- NOTE | 2019-12-08 07:12 | NUR ---
PATIENT TO ROOM VIA EMS DOUGCHER IN SEVERE RESPIRATORY DISTRESS, DIAPHORETIC AND ON EMS C-PAP/
[2019-12-08 07:51] LABS: HEMOGLOBIN 9.7 g/dl (12.0-16.0); IMMATURE GRANULOCYTES 0.4 % (0.0-5.0); MEAN CORPUSCULAR HGB 23.3 pG CALC (26.0-32.0); MEAN CORPUSCULAR HGB CONC 29.4 g/dL CAL (32.0-36.0); NEUT# 3.22 thou/uL (2.00-7.15); RED BLOOD COUNT 4.16 mill/uL (4.20-5.60)
[2019-12-08 07:56] LABS: MEAN CELL VOLUME 79.3 fL CALC (80.0-100.0)
[2019-12-08 08:02] LABS: ANION GAP 15 (6-22 (CALC)); BILIRUBIN, TOTAL 0.3 mg/dL (0.0-1.4); BUN 19 mg/dL (8-23); BUN/CREATININE RATIO 23 (12-20 (CALC)); CARBON DIOXIDE 22 mmol/l (22-30); CHLORIDE 107 mmol/l (95-108); CREATININE 0.8 mg/dL (0.5-1.0); GFR > 60 ML/MIN (>=60 (CALC)); GFR FOR AFR.AMER. > 60 ML/MIN (>=60 (CALC)); POTASSIUM 3.4 mmol/l (3.5-5.1); SODIUM 141 mmol/l (137-146)
[2019-12-08 08:09] LABS: ALKALINE PHOSPHATASE 85 u/l (38-126); SGOT/AST 47 u/l (9-36); TOTAL PROTEIN 7.4 g/dL (6.3-8.2)
--- NOTE | 2019-12-08 08:10 | NUR ---
PLACED PT ON BIPAP AT ARRIVAL. 14//50%. ABG ORDERED AND COMPLETED. FIO2 DECREASED TO 35%. YULI MONTENEGRO AND DR. PHOENIX AWARE
[2019-12-08 08:14] LABS: MYOGLOBIN 31 ng/mL (0 - 62)
--- NOTE | 2019-12-08 08:15 | NUR ---
RR 26 ON BIPAP, O2 SAT 99%. PT STATES SHE FEELS SO MUCH BETTER BUT RELATES HEADACHE AND RUQ DISCOMFORT FOR "DAYS". DENIES N/V/D.DENIES CHEST PAIN.EDP UPDATED ON NEW ORDERS RECEIVED.URINE OBTAINED BY [employer]. PT TOLERATING WELL
[2019-12-08 08:33] LABS: URINE BILIRUBIN - DIPSTICK NEGATIVE (NEGATIVE); URINE BLOOD DIPSTICK SMALL (NEGATIVE); URINE COLOR YELLOW; URINE GLUCOSE - DIPSTICK 250 mg/dL (NEGATIVE); URINE KETONE NEGATIVE (NEGATIVE); URINE LEUK ESTERASE NEGATIVE (NEGATIVE); URINE PROTEIN - DIPSTICK >=300 mg/dL (NEG-TRACE); URINE SPECIFIC GRAVITY 1.025; URINE UROBILINOGEN - DIPSTICK 0.2 E.U./dL (0.2)
[2019-12-08 08:34] LABS: URINE NITRITE - DIPSTICK NEGATIVE (Negative)
[2019-12-08 08:37] LABS: AMYLASE 101 u/l (30-110); LIPASE 137 u/l (23-300)
[2019-12-08 08:42] LABS: URINE EPITHELIAL CELLS RARE EPI/hpf (0-FEW); URINE WBC 0-2 WBC/hpf (0-5)
--- NOTE | 2019-12-08 09:43 | NUR ---
PT CHANGED OVER FROM BIPAP TO O2@2LPM VIA NC. PT TOLERATED WELL. VSS. BP 150/81, HR 79. UPDATED ON POC AND AGREEABLE. HAS HAD 1000CC CLEAR YELLOW URINE OUTPUT VIA [facility] [facility]. EDP UPDATED. PT DENIES CP OR SOB AT THIS TIME.
--- NOTE | 2019-12-08 09:59 | NUR ---
CALLED REPORT TO JOHN BEASLEY RN
--- NOTE | 2019-12-08 10:00 | NUR ---
[T TO RADIOLOGY FOR CT SCAN PRIOR TO TRANSPORT TO ICU. EMPTIED 400CC CLEAR LIGHT YELLOW URINE FROM [facility]
--- NOTE | 2019-12-08 11:10 | NUR ---
PT TRANSPORTED TO ICU ON O2@2LPM VIA NC. ON CONTINUOUS DIRECTOR ENTERPRISE SALES.P TTOLERATED WELL.
--- NOTE | 2019-12-08 11:15 | NUR ---
PT TO ICU BED 5 VIA STRETCHER. PT ABLE TO TRANSFER SELF TO BED WITH MINIMAL ASSISTANCE. PT IS ALERT AND ORIENTED X3. ADMISSION ASSESSMENT COMPLETED AT THIS TIME. IV PATENT X2. ORIENTED TO ROOM, UNIT AND CALL LIGHT SYSTEM. CALL LIGHT IN REACH. WILL CONTINUE TO MONITOR.
--- NOTE | 2019-12-08 11:32 | NUR ---
LAB AT BEDSIDE AT THIS TIME.
--- NOTE | 2019-12-08 11:40 | NUR ---
D ASHLIE NOTIFIED OF ABD PAIN 11/04. NEW ORDERS RECEIVED.
--- NOTE | 2019-12-08 11:50 | NUR ---
NITRO GTT STARTED PER PROVIDER ORDERS. PT EXPLAINED THE SIDE EFFECTS AND PURPOSE OF MEDICATION. PT VERBALIZED UNDERSTANDING. PUREWICK CHANGED AT THIS TIME WELL AND PLACED EXTENSION TUBING FOR COMFORT. PT SET UP FOR NOON MEAL WELL. WILL CONTINUE TO MONITOR.
--- NOTE | 2019-12-08 13:30 | NUR ---
PT REPORTS NAUSEA AFTER EATING LUNCH. PT MEDICATED WITH ZOFRAN PER APR. CALL LIGHT IN REACH. WILL CONTINUE TO MONITOR.
--- NOTE | 2019-12-08 14:30 | NUR ---
PT ELECTRONIC RESOURCES LIBRARIAN LIGHT AND STATES THAT THE TRAMADOL DID NOT TAKE AWAY HER PAIN AND THE PAIN IS WORSENING NOW. D ASHLIE MACKEY NOTIFIED.
--- NOTE | 2019-12-08 16:00 | NUR ---
PT RESTING IN BED WATCHING TV. RESP ARE EVEN AND UNLABORED. NO DISTRESS NOTED. CALL LIGHT IN REACH. WILL CONTINUE TO MONITOR.
--- NOTE | 2019-12-08 17:15 | NUR ---
Holli MACKEY AT BEDSIDE AT THIS TIME.
--- NOTE | 2019-12-08 18:02 | NUR ---
PT SITTING UP EATING DINNER AT THIS TIME. CALL LIGHT IN REACH. WILL CONTINUES TO MONITOR.
--- NOTE | 2019-12-08 18:15 | NUR ---
LAB AT BEDSIDE FOR TROPONIN
--- NOTE | 2019-12-08 18:42 | NUR ---
PHONED [facility] TO REQUEST MEDS BE VERIFIED.
--- NOTE | 2019-12-08 18:50 | NUR ---
D ASHLIE NOTIFIED OF REPEAT CRITICAL TROPONIN. NO NEW ORDERS AT THIS TIME.
--- NOTE | 2019-12-08 19:00 | NUR ---
REPORT GIVEN TO RADHA ROLDAN
--- NOTE | 2019-12-08 19:20 | NUR ---
PT C/O ABD PAIN, REQUESTING PAIN MED.
--- NOTE | 2019-12-08 19:35 | NUR ---
PT MEDICATED PER APR FOR 8/10 ABD PAIN.
--- NOTE | 2019-12-08 20:00 | NUR ---
PT RELATED PAIN MED HAS HELPED ABD PAIN, NOW RATED AT 7/10. NO NEEDS AT THIS TIME, CALL WHITE IN REACH.
--- NOTE | 2019-12-08 20:45 | NUR ---
PT REQUESTED SOMETHING FOR SLEEP, MEDICATED PER APR.
--- NOTE | 2019-12-08 22:00 | NUR ---
PT LYING IN BED WATCHING TV. NO C/O SOB, NO NEEDS AT THIS TIME. CALL WHITE IN REACH.
[2019-12-09] VITALS (21 sets, daily range): BP systolic 115–155; BP diastolic 59–95
--- NOTE | 2019-12-09 | NUR ---
PT WITH EYES CLOSED, OPENS WHEN RN ENTERS ROOM. PT RELATED IMPROVED TO ABD. CALL IN REACH.
--- NOTE | 2019-12-09 02:00 | NUR ---
PT RELATED HER LOWER ABD HAS INCREASED PAIN. PT RELATED IT FEELS LIKE MAYBE I NEED TO HAVE A BM. ASSISTED PT TO BEDSIDE COMMODE.
--- NOTE | 2019-12-09 02:30 | NUR ---
PT HAD SMALL FIRM BM, PASSED FLATULENCE. PT RELATED SMALL IMPROVEMENT IN PAIN. ASSISTED BACK TO BED. CALL WHITE IN REACH.
--- NOTE | 2019-12-09 04:00 | NUR ---
PT DAUGHTER CALLED, ASKED PT IF OK TO DISCUSS PT'S CONDITION, PT GAVE VERBAL OK. NO SOB AT THIS TIME. REMAINS ON NITRO GTT AT THIS TIME. NO DISTRESS NOTED, PT RELATED SHE'LL SEE HOW HER ABD FEELS LATER. CALL CINDY IN REACH.
--- NOTE | 2019-12-09 04:38 | NUR ---
INCREASE IN ANXIETY NOTED. PT WANTED TO CALL DAUGHTER. PT PHONE AT BEDSIDE.
--- NOTE | 2019-12-09 05:08 | NUR ---
LAB AT BEDSIDE FOR AM DRAW.
[2019-12-09 05:26] LABS: HEMATOCRIT 30.6 % (37.0-47.0); HEMOGLOBIN 9.3 g/dl (12.0-16.0); IMMATURE GRANULOCYTES 0.3 % (0.0-5.0); MEAN CELL VOLUME 76.5 fL CALC (80.0-100.0); MEAN CORPUSCULAR HGB 23.3 pG CALC (26.0-32.0); MEAN CORPUSCULAR HGB CONC 30.4 g/dL CAL (32.0-36.0); NEUT# 6.51 thou/uL (2.00-7.15)
--- NOTE | 2019-12-09 05:35 | NUR ---
PT RELATED SHE FELT WET. ROLLED PT FOUND DRY PAD, WICK IN PLACE. PT RELATED SHE THOUGHT THAT CAME OUT OF HER.
[2019-12-09 05:52] LABS: ALBUMIN 3.4 g/dL (3.2-5.0); ALKALINE PHOSPHATASE 71 u/l (38-126); ANION GAP 10 (6-22 (CALC)); BILIRUBIN, TOTAL 0.4 mg/dL (0.0-1.4); BUN 24 mg/dL (8-23); BUN/CREATININE RATIO 29 (12-20 (CALC)); CALCULATED LDLCHOLESTEROL 101 mg/dL (62-129 (CALC)); CHLORIDE 103 mmol/l (95-108); CHOLESTEROL HDL RATIO 2.9 (<4.4 (CALC)); CREATININE 0.8 mg/dL (0.5-1.0); GFR > 60 ML/MIN (>=60 (CALC)); GFR FOR AFR.AMER. > 60 ML/MIN (>=60 (CALC)); HDL CHOLESTEROL 64 mg/dL (>=40); MAGNESIUM 1.8 mg/dL (1.6-2.3); POTASSIUM 3.9 mmol/l (3.5-5.1); SGOT/AST 23 u/l (9-36); SODIUM 136 mmol/l (137-146); TOTAL CHOLESTEROL 183 mg/dl (0-199); TOTAL PROTEIN 6.2 g/dL (6.3-8.2); TOTAL TRIGLYCERIDES 95 mg/dl (30-149); VLDL CHOLESTROL 19 mg/dl (1-41 (CALC))
[2019-12-09 05:53] LABS: CARBON DIOXIDE 27 mmol/l (22-30)
--- NOTE | 2019-12-09 06:00 | NUR ---
PT C/O ABD PAIN RADIATING DOWN. REVIEWED PAIN MED SCHEDULE, PT AGREED.
--- NOTE | 2019-12-09 06:45 | NUR ---
REPORT RECEIVED FROM RADHA ROLDAN. CARE ASSUMED.
--- NOTE | 2019-12-09 07:00 | NUR ---
PT RESTING IN BED AWAKE. PT IS ALERT AND ORIENTED X3. SHIFT ASSESSMENT COMPLETED AT THIS TIME. IV PATENT X1. PT REQUESTING PAIN MEDICATION. MEDICATED PER APR. NITRO GTT STOPPED AT THIS TIME DUE TO BRADYCARDIA. CALL LIGHT IN REACH. WILL CONTINUE TO MONITOR.
--- NOTE | 2019-12-09 07:45 | NUR ---
PT ASSISTED UP TO BSC FOR BM AND VOID. PT THEN WASHED SELF UP. PT THEN ASSISTED TO RECLINER.
--- NOTE | 2019-12-09 08:05 | NUR ---
DR HARRISON AT BEDSIDE.
--- NOTE | 2019-12-09 08:30 | NUR ---
PT SET UP FOR AM MEAL AT THIS TIME.
--- NOTE | 2019-12-09 09:12 | NUR ---
PT ASSISTED TO BATHROOM FOR BM.
--- NOTE | 2019-12-09 09:18 | NUR ---
PT REPORT HAVING A MODERATE LOOSE BM AND A VOID. PT THEN BACK TO RECLINER AWAITING TRANSFER TO [facility]
--- NOTE | 2019-12-09 10:05 | NUR ---
[facility] ROOM ASSIGNMENT TO ROOM 278.
--- NOTE | 2019-12-09 10:56 | NUR ---
REPORT REC FROM CARMEN ROLDAN
--- NOTE | 2019-12-09 10:56 | NUR ---
REPORT CALLED TO CHRYSTAL ROLDAN ON [employer]. WILL TRANSFER PT AFTER LUNCH.
--- NOTE | 2019-12-09 11:30 | NUR ---
PT SITTING UP IN RECLINER. SET UP FOR NOON MEAL AT THIS TIME. PT VERBALIZES FEELING BETTER AND UNDERSTANDING OF TRANSFER TO MED SURG.
--- NOTE | 2019-12-09 13:15 | NUR ---
daughter at bedside to drop off home belongings.
--- NOTE | 2019-12-09 13:25 | NUR ---
pt to [facility] room 278 via wheelchair. tolerated transfer well.
--- NOTE | 2019-12-09 13:39 | NUR ---
PT ARRIVED TO [place] VIA WC ACCOMPANIED BY CARMEN ROLDAN. A&O X3. NO DISTRESS NOTED. PT REPORTS TO BE DOING BETTER TODAY, C/O OF SLIGHT ABD PAIN BUT STATES SHE DOES NOT NEED ANYTHING FOR IT AT THIS TIME. PT CURRENTLY 95% ON RA. ASSESSMENT COMPLETED. ORIENTED PT TO ROOM. CALL LIGHT IN REACH. CONTINUE TO MONITOR.
--- NOTE | 2019-12-09 15:10 | NUR ---
RECD MED LIST FROM PT'S PCP DR JOHNSON OFFICE, MOST RECENT MEDS ARE FROM [facility] WITH THE EXCEPTION OF HER PAIN MEDS. SPOKE WITH PT WHO SAYS SHE HASN'T HAD AN APPT WITH HIM FOR 6 MONTHS, SO NO MEDS HAVE BEEN FILLED SINCE THEN. PT SEEMS TO BE VERY NONCOMPLIANT BUT CLAIMS SHE STILL HAS MEDS AT HOME, DIDN'T RUN OUT OF STOCK. UPDATED MED LIST BEST POSSIBLE
[2019-12-09] MEDS ORDERED: OXYCODONE10 M1 PO (15:13)
--- NOTE | 2019-12-09 19:50 | NUR ---
PT RESTING IN BED, NO SIGNS OF DISTRESS NOTED, RESP EVEN AND UNLABORED. DISCUSSED POC, PT VOICES NO NEEDS OR COMPLAINTS AT THIS TIME. ASSESSMENT COMPLETED, CALL LIGHT IN REACH,CONTINUE TO MONITOR.
--- NOTE | 2019-12-09 23:20 | NUR ---
PT CALLED C/O PAIN TO ARM WHERE IV SITE IS, METAL RIVETING MACHINE OPERATOR ATTEMPTED 2 IV'S BOTH UNSUCCESSFUL, RN AT BEDSIDE ATTEMPTING IV SITE. CALL LIGHT IN REACH, CONTINUE TO MONITOR.
[2019-12-10] VITALS (9 sets, daily range): BP systolic 109–177; BP diastolic 71–98
--- NOTE | 2019-12-10 03:38 | NUR ---
PT C/O BURNING PAIN TO HANDS, STATES THEY FEEL NUMB, BOTH HANDS WARM TO TOUCH, RADIAL PULSES EQUAL AND STRONG. PT MEDICATED WITH TYLENOL AND WARM COMPRESSES GIVEN UPON REQUEST. PT ASSISTED TO BSC, CLERGY MEMBER AT BEDSIDE FOR AM VITALS, CALL LIGHT IN REACH,CONTINUE TO MONITOR.
--- NOTE | 2019-12-10 04:25 | NUR ---
PT RESTING IN BED, BP ELEVATED, PT MEDICATED WITH AM MEDICATIONS, WILL RECHECK BP IN 1HR, PT STATES HER HANDS ARE STARTING TO FEEL BETTER. CALL LIGHT IN REACH,CONTINUE TO MONITOR.
--- NOTE | 2019-12-10 07:22 | NUR ---
RECIEVED REPORT FROM Cadence COOK LPN. PT RESTING IN SEMI FOWLERS POSIITION UPON ENTERING ROOM. INTRODUCED SELF TO PT AND DISCUSSED POC. PT IS A/O X3. ASSESSMENT AND VITALS COMPLETED AT THIS TIME. BP 159/89, HR 69, O2 97% ON ROOM AIR. RESPIRATIONS ARE EVEN AND UNLABORED WITH NO SIGNS OF DISTRESS NOTED. LUNG SOUNDS ARE DIMINISHED. HEART RHYTHM IS NORMAL WITH TELE IN PLACE. BOWEL SOUND SARE ACTIVE IN ALL QUADRANTS, LAST REPORTED BM 12/10/2019. RADIAL AND PEDAL PULSES ARE STRONG WITH NORMAL CAPILLARY REFILL. #22G IN RH FLUSHED, SITE APPEARS HEALTHY AND PATENT. PT DENIES OF ANY PAIN OR DISCOMFORTS AT THIS TIME. ALL SAFTEY PRECAUTIONS ARE IN PLACE WIHT CALL LIGHT IN REACH. WILL CONTINUE TO MONITOR
--- NOTE | 2019-12-10 08:53 | NUR ---
DR GARCIA AND ETIENNE,ANRP AT BEDSIDE DISCUSSING POC WITH PT
--- NOTE | 2019-12-10 12:20 | NUR ---
PT IS A/O X3 RESTING IN CHAIR EATING LUNCH UPON ENTERING ROOM. RESPIRATIONS ARE EVEN AND UNLABORED WITH NO SIGNS OF DISTRESS NOTED. PT REQUEST EYE DROPS FOR DRY EYES. NORMAL SALINE FLUSH PROVIED. PT DENIES ANY PAIN OR ANY OTHER NEEDS AT THIS TIME. ALL SAFETY PRECAUITONS ARE IN PLACE WITH CALL LIGHT IN REACH. WILL CONTINUE TO MONITOR
--- NOTE | 2019-12-10 15:33 | NUR ---
I.S ADMINISTERED TO PT. EDUCATED PT ON USE. PT VERBAILZED UNDERSTANDING
--- NOTE | 2019-12-10 16:32 | NUR ---
PT RESTING IN SEMI FOWLERS POSITION UPON ENTERING ROOM. RESPIRATIONS ARE EVEN AND UNLABROED WITH NO SIGNS OF DISTRESS NOTED. PT DENIES OF ANY PAIN OR DISCOMFORTS AT THIS TIME. ALL SAFTEY PRECAUTIONS ARE IN PLACE WITH CALL LIGHT IN REACH. WILL CONTINUE TO MONITOR
--- NOTE | 2019-12-10 19:45 | NUR ---
PT IS SLEEPING, NO S/O DISTRESS AT THIS TIME. CALL LIGHT AT SIDE.
--- NOTE | 2019-12-10 20:38 | NUR ---
PT APPEARS TO BE SLEEPING STILL AT THIS TIME. WILL FOLLOW-UP WITH ASSESSMENT AND MEDICATIONS ORDERS PROVIDE. NO S/O DISTRESS. CALL LIGHT AT SIDE.
--- NOTE | 2019-12-10 21:59 | NUR ---
PT CALLED ASKING FOR HER NURSE. UPON ENTERING ROOM WITH PT'S MEDICATIONS, PT STATED THAT SHE HAD NOT SEEN ME ALL NIGHT, I AGREED AND APOLOGIZED, BUT INFORMED PT THAT I HAD BEEN IN HER ROOM TWICE SINCE ARRIVING AND SHE APPEARED TO BE SLEEPING SOUNDLY SO I DID NOT WANT TO WAKE HER UNLESS NECESSARY. SHE ADMITTED TO FALLING ASLEEP, BUT STATED "I SHOULD HAVE HAD MY MEDS AT NINE." I AGREED AND INFORMED HER THAT THEY ARE ORDERED FOR 9PM, BUT THAT I HAVE 4 PTS AND CANNOT MEDICATE EACH ONE AT THE EXACT SAME TIME AND THAT I ALSO HAD A NEW PT COME UP FROM ED THAT NEEDED TO BE SETTLED IN. PT STATED, "I JUST THINK YOU DON'T WANT TO TAKE CARE OF ME BECAUSE I AM BLACK." I REASSURED THE PT THAT THIS WAS NOT THE CASE AND THAT I JUST DID NOT WANT TO WAKE HER WHEN SHE APPEARED TO BE RESTING AND THAT I ALSO HAD OTHER PTS THAT I WAS SEEING AT THE TIME. I ASSURED THE PT THAT HER CARE WAS VERY IMPORTANT TO ME AND IF SHE NEEDS ME AT ALL, SHE CAN PUSH HER CALL LIGHT BUTTON/SHOWING PT THE RED BUTTON. SHE STATED, "I DID NOT WANT TO BOTHER YOU AND I DID FALL ASLEEP, I'M SORRY." SHE STATED SHE WAS JUST WORRIED ABOUT HER MEDICATIONS. I REVIEWED THE MEDICATIONS BEING ADMINISTERED AT THIS TIME WITH PT, SHE VERBALIZED UNDERSTANDING. BSC EMPTIED FOR PT AND POC DISCUSSED AT THIS TIME. SNACK/DRINK WITH ICE PROVIDED FOR COMFORT. PT DENIES ANY OTHER NEEDS AT THIS TIME. CALL LIGHT COMFIRMED W/IN REACH AND PT ENCOURAGED TO CALL ANY NEEDS ARISE. PT VERBALIZED UNDERSTANDING AND AGREED TO CALL ME IF SHE NEEDED ME AT ALL.
--- NOTE | 2019-12-11 00:55 | NUR ---
PT SLEEPING, AWOKE TO MY ENTERING ROOM. IV FLUSHED WITH NS. DENIES ANY OTHER NEEDS AT THIS TIME.
[2019-12-11 04:35] VITALS: BP 166/96
--- NOTE | 2019-12-11 04:59 | NUR ---
PT MEDICATED ORDERS PROVIDE FOR PAIN 9/10 ON PAIN SCALE. NO S/O DISTRESS AT THIS TIME. LAB JUST LEFT PT AND V/S JUST OBTAINED BY METAL FABRICATOR APPRENTICE. PT DENIES ANY OTHER NEEDS. CALL LIGHT AT SIDE AND PT ENCOURAGED TO CALL ANY NEEDS ARISE.
[2019-12-11 05:15] VITALS: BP 154/90
[2019-12-11 05:34] LABS: HEMATOCRIT 31.6 % (37.0-47.0); HEMOGLOBIN 9.5 g/dl (12.0-16.0); IMMATURE GRANULOCYTES 0.5 % (0.0-5.0); MEAN CELL VOLUME 76.3 fL CALC (80.0-100.0); MEAN CORPUSCULAR HGB 22.9 pG CALC (26.0-32.0); MEAN CORPUSCULAR HGB CONC 30.1 g/dL CAL (32.0-36.0); NEUT# 3.78 thou/uL (2.00-7.15); RED BLOOD COUNT 4.14 mill/uL (4.20-5.60); RED CELL DISTRI WIDTH 16.6 % (11.5-15.5)
[2019-12-11 05:57] LABS: ALBUMIN 3.6 g/dL (3.2-5.0); ALKALINE PHOSPHATASE 67 u/l (38-126); ANION GAP 10 (6-22 (CALC)); BILIRUBIN, TOTAL 0.3 mg/dL (0.0-1.4); BUN 19 mg/dL (8-23); BUN/CREATININE RATIO 24 (12-20 (CALC)); CARBON DIOXIDE 31 mmol/l (22-30); CHLORIDE 101 mmol/l (95-108); CREATININE 0.8 mg/dL (0.5-1.0); GFR > 60 ML/MIN (>=60 (CALC)); GFR FOR AFR.AMER. > 60 ML/MIN (>=60 (CALC)); POTASSIUM 3.9 mmol/l (3.5-5.1); SGOT/AST 16 u/l (9-36); SODIUM 138 mmol/l (137-146); TOTAL PROTEIN 6.3 g/dL (6.3-8.2)
[2019-12-11 07:44] VITALS: BP 162/91
--- NOTE | 2019-12-11 08:00 | NUR ---
PT IS RESTING IN BED WITH NO S/S OF DISTRESS NOTED. ASSESSMENT DONE. PT IS A&O X3. PT DENIES PAIN AT THIS TIME. TELE IN PLACE. PT DENIES NEEDS AT THIS TIME. CALL LIGHT IN REACH.
[2019-12-11 10:55] VITALS: BP 141/79
[2019-12-11] MEDS ORDERED: LASIX 20 MG TAB20 MG PO (11:10)
[2019-12-11] MEDS ORDERED: PREDNISONE10 MG PO (11:17)
[2019-12-11] MEDS ORDERED: LEVAQUIN750 M1 PO (11:17)
--- NOTE | 2019-12-11 12:30 | NUR ---
PT IS WAITING TO BE DC AND FOR HER RIDE. TOLD PT I WILL WORK HER HER PAPERS. PT DENIES ANY OTHER NEEDS AT THIS TIME. CALL LIGHT IN REACH.
--- NOTE | 2019-12-11 13:59 | NUR ---
Discharge instructions given. Patient verbalizes understanding of same. Discharged in stable condition via Wheelchair to Home with family. All belongings sent with pt.
--- NOTE | 2019-12-14 11:09 | NUR ---
Pneumonia post discharge follow up call completed 12/14/19. Pt. states she is doing well and progressing nicely. No fever, chills, SOB, or excessive fatigue. Home Health nurse has visited and PT is scheduled to come as well.. Patient obtained discharge medication and is taking without difficulty. Follow up with PCP has not been scheduled yet, but patient assures me she will schedule soon. No questions or needs expressed.
== END 2019-12-11 13:59 | disposition home health service (06) | DRG 292 ==
LOC: ED 07:12 → ED-I 09:12 → ED 09:22 → MS2 09:23 → ICU 09:23 → MS2 12-09 13:30
PROVIDERS: Emergency Medicine; Nurse Practitioner; ADMIT Internal Medicine; ATTEND Internal Medicine
PROC: 5A09357 Assistance with Respiratory Ventilation, Less than 24 Consecutive Hours, Continuous Positive Airway Pressure (ICD-10-PCS; principal; 2019-12-08)
DX: I11.0 Hypertensive heart disease with heart failure (principal); J44.1 Chronic obstructive pulmonary disease with (acute) exacerbation; E87.2 Acidosis; I24.8 Other forms of acute ischemic heart disease; I50.1 Left ventricular failure, unspecified; I16.0 Hypertensive urgency; K44.9 Diaphragmatic hernia without obstruction or gangrene; M54.9 Dorsalgia, unspecified; G89.29 Other chronic pain; E87.6 Hypokalemia; F17.200 Nicotine dependence, unspecified, uncomplicated; T46.5X6A Underdosing of other antihypertensive drugs, initial encounter; Z91.128 Patient's intentional underdosing of medication regimen for other reason; Z20.828 Contact with and (suspected) exposure to other viral communicable diseases; Z79.891 Long term (current) use of opiate analgesic
CPT/HCPCS: J1650; Q9967

== ENCOUNTER 2021-03-20 06:39 | Observation (INO) | payer MEDICARE, MEDICAID ==
[2021-03-20] VITALS (9 sets, daily range): BP systolic 142–199; BP diastolic 87–102
[~2021-03-20] VITALS: Ht 162.6 cm; Wt 76.0 kg
[~2021-03-20 06:39] MED LIST changes: +LASIX 20 MG TAB20 MG PO; +LEVAQUIN750 M1 PO; +LOPRESSOR25 M1 PO; -LOPRESSOR50 M1 PO; +PERCOCET 10/31 COMBO PO; +PREDNISONE10 MG PO
--- NOTE | 2021-03-20 06:40 | NUR ---
PT TO ROOM VIA EMS FOR BEDSIDE TIRAGE
--- NOTE | 2021-03-20 06:45 | NUR ---
PT OOB TO BSC.
--- NOTE | 2021-03-20 07:00 | NUR ---
REPORT FROM VITA ROLDAN. CARE ASSUMED.
[2021-03-20 07:58] LABS: IMMATURE GRANULOCYTES 0.3 % (0.0-5.0); MEAN CORPUSCULAR HGB CONC 27.2 g/dL CAL (32.0-36.0); NEUT# 7.02 thou/uL (2.00-7.15); RED BLOOD COUNT 4.12 mill/uL (4.20-5.60); RED CELL DISTRI WIDTH 22.3 % (11.5-15.5)
--- NOTE | 2021-03-20 08:00 | NUR ---
FReassessment of patient completed. No distress noted.
[2021-03-20 08:02] LABS: HEMATOCRIT 24.3 % (37.0-47.0); HEMOGLOBIN 6.6 g/dl (12.0-16.0)
[2021-03-20 08:14] LABS: ALKALINE PHOSPHATASE 89 u/l (38-126); ANION GAP 10 (6-22 (CALC)); BUN 9 mg/dL (8-23); BUN/CREATININE RATIO 17 (12-20 (CALC)); CARBON DIOXIDE 26 mmol/l (22-30); CHLORIDE 106 mmol/l (95-108); CREATININE 0.5 mg/dL (0.5-1.0); GFR > 60 ML/MIN (>=60 (CALC)); GFR FOR AFR.AMER. > 60 ML/MIN (>=60 (CALC)); POTASSIUM 3.5 mmol/l (3.5-5.1); SODIUM 139 mmol/l (137-146); TOTAL PROTEIN 7.1 g/dL (6.3-8.2)
[2021-03-20 08:23] LABS: MYOGLOBIN 36 ng/mL (0 - 62)
[2021-03-20 08:29] LABS: BILIRUBIN, TOTAL 0.6 mg/dL (0.0-1.4); SGOT/AST 30 u/l (9-36)
--- NOTE | 2021-03-20 09:00 | NUR ---
Reassessment of patient completed. No distress noted.
[2021-03-20] MEDS ORDERED: LISINOPRIL20 M1 PO (09:24)
[2021-03-20] MEDS ORDERED: VENTOLIN HF1 IN (09:24)
[2021-03-20 09:49] LABS: URINE BILIRUBIN - DIPSTICK NEGATIVE (NEGATIVE); URINE BLOOD DIPSTICK SMALL (NEGATIVE); URINE COLOR YELLOW; URINE GLUCOSE - DIPSTICK NEGATIVE (NEGATIVE); URINE KETONE NEGATIVE (NEGATIVE); URINE LEUK ESTERASE NEGATIVE (NEGATIVE); URINE PROTEIN - DIPSTICK 30 mg/dL (NEG-TRACE); URINE SPECIFIC GRAVITY 1.025; URINE UROBILINOGEN - DIPSTICK 0.2 E.U./dL (0.2)
[2021-03-20 09:50] LABS: URINE NITRITE - DIPSTICK NEGATIVE (Negative)
--- NOTE | 2021-03-20 09:56 | NUR ---
REPORT RECVD FROM YULI DEVI
[2021-03-20 09:57] LABS: URINE SQUAMOUS EPITHELIAL CELL FEW EPI/hpf (0-FEW); URINE WBC 0-2 WBC/hpf (0-5)
--- NOTE | 2021-03-20 10:04 | NUR ---
PT WITH BLOOD TRANSFUSING. PT STATES SHE CONTINUES TO HAVE UPPER ABDOMINAL PAIN AND RATES AT 7/10. PT'S BP ELEVATED AT THIS TIME 196/97. BREATHING IMPROVED PER PT AT 3L OXYGEN VIA NC-SATS 97%. PT ABLE TO SPEAK IN FULL SENTENCES AND STATES PAIN IS WORSE AT TIMES AND THEN LESSENS. WILL CONTINUE TO MONITOR
--- NOTE | 2021-03-20 10:20 | NUR ---
PT'S IV IN RAC HAS INFILTRATED, BLOOD TRANSFUSION STOPPED, IV D/C. PT WITH HARD AREA AND PAIN ABOVE IV SITE. WARM COMPRESS APPLIED. SIGNS SALES REPRESENTATIVE NOTIFIED. PT STABLE. PT RECEIVED 72ML OF BLOOD. DR SAN NOTIFIED.
--- NOTE | 2021-03-20 10:34 | NUR ---
2 UNSUCCESSFUL IV ATTEMPTS, SURFBOARD MAKER NOTIFIED.
--- NOTE | 2021-03-20 10:45 | NUR ---
PT'S BP REMAINS ELEVATED, DR SAN NOTIFIED, AWAITING ORDERS
--- NOTE | 2021-03-20 10:56 | NUR ---
PT RECEIVED PO MEDS FOR BP. WILL CONTINUE TO MONITOR.
--- NOTE | 2021-03-20 12:16 | NUR ---
BLOOD TRANSFUSION COMPLETE, LINE FLUSHED. SET UP TO LAB. PT STABLE.
--- NOTE | 2021-03-20 12:46 | NUR ---
CALL PLACED TO MED/SURG TO GIVE REPORT, RN UNABLE TO TAKE.
--- NOTE | 2021-03-20 13:05 | NUR ---
REPOR CALLED TO VINH ROLDAN
--- NOTE | 2021-03-20 13:06 | NUR ---
PT LEAVES ED VIA STRETCHER TO MED/SURG FOR ADMISSION. BELONGINGS AND PAPERWORK SENT.
--- NOTE | 2021-03-20 13:55 | NUR ---
CUSTOMER CARE COORDINATOR CALLED STATING PATINET TELE MONITOR SHOWING PATINET IN A-FIB AT THIS TIME. MAXI DAILEY NOTIFIED OF CHANGE IN RYTHM AT THIS TIME. WILL CONTINUE TO MONITOR.
--- NOTE | 2021-03-20 14:17 | NUR ---
PATIENT RECEIVED FROM ED AT THIS TIME. REPORT GIVEN TO THIS NURSE BY MARITO BEASLEY RN. PATIETN ALERT AND ORINETED AT THIS TIME. PATIENT STATES SHE HAS HAD DIARREHA TODAY AND WAS INCONTINENT WHEN SHE WAS TRANSFERED TO BED. PATIENT PRESENTS WITH BILARERAL LOWER EDEMA 1+ AT THIS TIME. LUNG SOUNDS ARE CLEAR IN UPPER COONEY AND DIMINISHED IN LOWER COONEY. STUDENT SERVICES DIRECTOR DONE SEE INTERVENTIONS SIDERAILS ARE UP X 2 CALL LIGHT WITHIN REACH AND PATIENT SIGNED ROOM SAFETY AGREEMENT. TELE MONITOR ON AND BEING MONITORED BY ED. WILL CONTINUE TO MONITOR.
--- NOTE | 2021-03-20 16:00 | NUR ---
PAITENT RESTING IN BED AT THIS TIME SIDERAILS ARE UP CALL LIGHT NEAR. PATIENT GIVEN EDUCATION ON RECEIVING BLOOD AND SIGNS AND SYMPTOMS OF COMPLICATIONS PATIENT VERBALIZES UNDERSTANDING AT THIS TIME. TELE MONITOR IN PLACE CALL LIGHT NEAR SIDERAILS ARE UP X 2
--- NOTE | 2021-03-20 16:17 | NUR ---
PATIENT BLOOD TRANSFUSION STARTED AT THIS TIME. VITAL SIGNS TAKEN SEE CHART. T.98.2 P. 85 R. 18 BP 149/90 SPO2 IS 100% ON 3LITERS OF O2 AT THIS TIME. PATIENT WAS EDUCATED ON BLOOD TRANSFUSION COMPLICATIONS AT THIS TIME. PATEINT VERBALIZED UNDERSTANDING OF THE EDUCATION AT THIS TIME. TELE MONITOR ON PATEINT AND WILL CONTINUE TO MONITOR.
--- NOTE | 2021-03-20 16:29 | NUR ---
PATIENT RESTING IN BED DENEIS ANY NEEDS VS TAKEN AT TIME SEE INTERVENTION BLOOD IS TRANSFUSING (2ND UNIT) AT 125ML/HR. SIDERAILS ARE UP CALL LIGHT IS WIHTIN REACH. WILL CONTINUTE TO MONITOR.
--- NOTE | 2021-03-20 16:38 | NUR ---
Patient has been screened for physical therapy and would benefit from evaluation and treatment by physical therapy.
--- NOTE | 2021-03-20 17:20 | NUR ---
ED CALLED TO ADVISE THAT PATIENT HEART RATE IS NOW 122 NOTIFIED MAXI HITCHCOCK AND MEDICATION ORDER GIVEN.
--- NOTE | 2021-03-20 17:21 | NUR ---
5MG OF IV LOPRESSOR GIVEN AT THIS TIME. TELE MONITOR IN PLACE WILL CONTINUE TO MONITOR.
--- NOTE | 2021-03-20 17:34 | NUR ---
PATIENT RESTING AT THIS TIME DENIES ANY PAIN OR BACK PAIN OR SHORTNESS OF BREATH. VITAL SIGNS ARE 98.3 PULSE 88 RESP. 18 PB 178/102 AT THIS TIME. MAXI DAILEY NOTIFIED OF BLOOD PRESSURE AND STATED CONTINUE WITH BLOOD AND MEDICATION ORDER GIVEN FOR BLOOD PRESSURE AT THIS TIME. SIDERAILS ARE UP CALL LIGHT IS WITHIN REACH. WILL CONTINUE TO MONITOR.
--- NOTE | 2021-03-20 18:08 | NUR ---
10MG OF NORVASC GIVEN AT THIS TIME FOR BP OF 178/102 WILL CONTINUE TO MONITTOR
--- NOTE | 2021-03-20 18:37 | NUR ---
PATIENT D/C AT THIS TIME IV REMOVED TIP INTACT PATIENT STATED SHE UNDERSTANDS D/C INSTRUCTIONS AT THIS TIME.
--- NOTE | 2021-03-20 18:42 | NUR ---
TRANSFUSION ENDED AT THIS TIME. PATIENT DEINES ANY NEEDS AT THIS TIME. TELE MONITOR ON AND BEING MONITORED BY ED.
--- NOTE | 2021-03-20 19:51 | NUR ---
PATIENT ALERT AND ORIENTED. ABLE TO MAKE NEEDS KNOWN. ASSESSMENT COMPLETE. NO SIGNS OF DISTRESS NOTED. NO COMPLAINTS OF PAIN AT THIS TIME. ENCOURAGED PATIENT TO UTILIZE CALL LIGHT TO ASK FOR ASSISTANCE. PATIENT TENDS TO SIT UP ON SIDE OF THE BED. CALL LIGHT AND BELONGINGS REMAIN IN REACH.
[2021-03-20 21:16] LABS: HEMATOCRIT 30.2 % (37.0-47.0)
[2021-03-20 21:17] LABS: HEMOGLOBIN 8.6 g/dl (12.0-16.0)
--- NOTE | 2021-03-20 21:56 | NUR ---
NOTIFIED MAIN LINE STATION ENGINEER PROVIDER OF PATIENTS CH TROPONIN OF 0.155. NO NEW ORDERS RECEIVED. PATIENT DENIES ANY CHEST PAIN OR DISTRESS AT THIS TIME.
--- NOTE | 2021-03-20 21:58 | NUR ---
PROVIDER CALLED BACK AND PUT NEW ORDERS IN TO TRANSFER PATIENT TO ICU.
--- NOTE | 2021-03-20 22:30 | NUR ---
rec'd to icu5 per bed from [facility]. report rec'd per jaden shaikh. pt denies c/o chest pain. monitoring coordinator shows a fib pvcs hr 83. o2 cont per nc. #22 lfa saline lock. fall precautions cont. incont of urine. cleansed per care giver x2. instructed pt to call for any assist.
--- NOTE | 2021-03-20 23:00 | NUR ---
medicated for pain as requested.
[2021-03-21] VITALS (10 sets, daily range): BP systolic 107–182; BP diastolic 59–93
--- NOTE | 2021-03-21 00:30 | NUR ---
lab here. blood drawn.
--- NOTE | 2021-03-21 02:00 | NUR ---
resting quietly. no resp diff. o2 cont.
--- NOTE | 2021-03-21 02:45 | NUR ---
medicated for pain as requested.
--- NOTE | 2021-03-21 04:00 | NUR ---
eyes closed. watchstander shows a fib pvcs.
--- NOTE | 2021-03-21 05:34 | NUR ---
blood drawn & sent to lab.
[2021-03-21 06:11] LABS: HEMATOCRIT 28.5 % (37.0-47.0); HEMOGLOBIN 8.2 g/dl (12.0-16.0); MEAN CORPUSCULAR HGB CONC 28.8 g/dL CAL (32.0-36.0); RED BLOOD COUNT 4.55 mill/uL (4.20-5.60); RED CELL DISTRI WIDTH 26.5 % (11.5-15.5)
[2021-03-21 06:27] LABS: MEAN CELL VOLUME 62.6 fL CALC (80.0-100.0)
[2021-03-21 06:32] LABS: ANION GAP 12 (6-22 (CALC)); BUN 10 mg/dL (8-23); BUN/CREATININE RATIO 16 (12-20 (CALC)); CALCULATED LDLCHOLESTEROL 68 mg/dL (62-129 (CALC)); CARBON DIOXIDE 30 mmol/l (22-30); CHLORIDE 102 mmol/l (95-108); CHOLESTEROL HDL RATIO 2.6 (<4.4 (CALC)); CREATININE 0.7 mg/dL (0.5-1.0); GFR > 60 ML/MIN (>=60 (CALC)); GFR FOR AFR.AMER. > 60 ML/MIN (>=60 (CALC)); HDL CHOLESTEROL 50 mg/dL (>=40); MAGNESIUM 1.5 mg/dL (1.6-2.3); POTASSIUM 3.4 mmol/l (3.5-5.1); SODIUM 140 mmol/l (137-146); TOTAL CHOLESTEROL 131 mg/dl (0-199); TOTAL TRIGLYCERIDES 64 mg/dl (30-149); VLDL CHOLESTROL 13 mg/dl (1-41 (CALC))
[2021-03-21] MEDS ORDERED: FUROSEMIDE20 MG PO (07:49)
--- NOTE | 2021-03-21 10:39 | NUR ---
PT AWAKE, ALERT, ORIENTED X 3. PT WITH PAIN ACROSS LOWER ABDOMEN, MEDICATED. PT WITH CLEAR BUT DIMINISHED LUNG SOUNDS, 2 LPM NC, NOW OFF SATS WERE MID 90s. PT WITH PUREWICK IN PLACE NOW, HAS BEEN GIVEN LASIX RECENTLY.
--- NOTE | 2021-03-21 16:04 | NUR ---
PT HAS BEEN ASSISTED IN BEDBATH BY CLEMENT SOSA. PT CONTINUES ALERT AND ORIENTED X 3. PT NC OFF, SATS DOING WELL WITHOUT SUPPLEMENTAL OXYGEN. FAMILY CALLS TO CHECK ON PT.
--- NOTE | 2021-03-21 17:54 | NUR ---
PT SEEN AT 100% NC, TURNED DOWN TO 2 LPM. PT STATED THAT IT WAS BOTHERING HER NOSE, NC REMOVED. SATS SEEN NOW IN THE LOW 90s.
--- NOTE | 2021-03-21 18:33 | NUR ---
DIET ADVANCED TO CARDIAC, TRAY PROVIDED.
--- NOTE | 2021-03-21 20:00 | NUR ---
awakens easily. no distress. beating machine operator shows a fib pvcs. #22 lfa saline lock. po fluids remain restricted. voids per bsc. fall precautions cont.
--- NOTE | 2021-03-21 22:00 | NUR ---
eyes closed. no distress.
[2021-03-22] VITALS (10 sets, daily range): BP systolic 100–143; BP diastolic 63–89
--- NOTE | 2021-03-22 02:00 | NUR ---
resting quietly. resps even & unlabored. no apparent distress.
--- NOTE | 2021-03-22 05:00 | NUR ---
lab here. blood drawn.
[2021-03-22 05:46] LABS: HEMATOCRIT 28.8 % (37.0-47.0); HEMOGLOBIN 8.2 g/dl (12.0-16.0); IMMATURE GRANULOCYTES 0.1 % (0.0-5.0); MEAN CORPUSCULAR HGB 18.2 pG CALC (26.0-32.0); MEAN CORPUSCULAR HGB CONC 28.5 g/dL CAL (32.0-36.0); NEUT# 4.41 thou/uL (2.00-7.15); RED BLOOD COUNT 4.5 mill/uL (4.20-5.60); RED CELL DISTRI WIDTH 27.3 % (11.5-15.5)
[2021-03-22 06:09] LABS: ANION GAP 5 (6-22 (CALC)); BUN 12 mg/dL (8-23); BUN/CREATININE RATIO 16 (12-20 (CALC)); CARBON DIOXIDE 34 mmol/l (22-30); CHLORIDE 102 mmol/l (95-108); CREATININE 0.7 mg/dL (0.5-1.0); GFR > 60 ML/MIN (>=60 (CALC)); GFR FOR AFR.AMER. > 60 ML/MIN (>=60 (CALC)); POTASSIUM 3.5 mmol/l (3.5-5.1); SODIUM 137 mmol/l (137-146)
--- NOTE | 2021-03-22 11:31 | NUR ---
PT SEEN AWAKE, ALERT, ORIENTED X 3. DR HARRISON IN TO SEE PT, WRITES TRANSFER ORDERS TO [facility]. PT RECEIVED PERCOCET SCHEDULED, THEN MORPHINE. NO DISTRESS, NO WEAKNESS NOTED. VISITOR AT BEDSIDE AT THIS TIME.
--- NOTE | 2021-03-22 12:49 | NUR ---
PT VISITED BY HER GRANDDAUGHTER TODAY. NO CHANGE IN STATUS. PT AWARE OF PROBABLE DISCHARGE TO HOME TOMORROW.
--- NOTE | 2021-03-22 16:19 | NUR ---
PT HAS HAD VISITORS THIS AFTERNOON, REMAINS AT REST IN THE BED IN NO ACUTE DISTRESS.
--- NOTE | 2021-03-22 19:00 | NUR ---
REPORT RECEIVED FROM Kam NICHOLAS RN. CARE OF PT ASSUMED AT THIS TIME. TRANSFER TO [facility] PENDING.
--- NOTE | 2021-03-22 20:30 | NUR ---
TELE NUMBER [id number] PLACED BY Sonny MIRELES RN
--- NOTE | 2021-03-22 20:30 | NUR ---
REPORT RECEIVED FROM Sonny MIRELES RN
--- NOTE | 2021-03-22 20:51 | NUR ---
REPORT GIVEN TO Naveed ACOSTA RN.
--- NOTE | 2021-03-22 21:00 | NUR ---
PT TRANSFERRED TO ROOM 274 VIA WC. ACCOMPANIED BY NURSE. ON TELEMETRY.
--- NOTE | 2021-03-22 21:00 | NUR ---
PT ARRIVED VIA WHEELCHAIR ACCOMPANIED BY Sonny MIRELES RN.
[2021-03-23] VITALS (8 sets, daily range): BP systolic 104–155; BP diastolic 58–86
--- NOTE | 2021-03-23 00:02 | NUR ---
PT COMPLAINING OF 4/10 PAIN, MEDICATED PER EMAR, SEE EMAR.
--- NOTE | 2021-03-23 05:37 | NUR ---
PT ECTOR , AWOKEN BY WRITTER, REQUESTING A BLANKET, BLANKET PROVIDED. CALL LIGHT AND BEDSIDE TABLE WITHIN REACH.
[2021-03-23 05:56] LABS: HEMOGLOBIN 7.7 g/dl (12.0-16.0); IMMATURE GRANULOCYTES 0.1 % (0.0-5.0); MEAN CELL VOLUME 65.1 fL CALC (80.0-100.0); MEAN CORPUSCULAR HGB 17.9 pG CALC (26.0-32.0); MEAN CORPUSCULAR HGB CONC 27.5 g/dL CAL (32.0-36.0); NEUT# 4.16 thou/uL (2.00-7.15); RED BLOOD COUNT 4.3 mill/uL (4.20-5.60); RED CELL DISTRI WIDTH 28.4 % (11.5-15.5)
[2021-03-23 06:15] LABS: ANION GAP 7 (6-22 (CALC)); BUN 15 mg/dL (8-23); BUN/CREATININE RATIO 22 (12-20 (CALC)); CARBON DIOXIDE 32 mmol/l (22-30); CHLORIDE 103 mmol/l (95-108); CREATININE 0.7 mg/dL (0.5-1.0); GFR > 60 ML/MIN (>=60 (CALC)); GFR FOR AFR.AMER. > 60 ML/MIN (>=60 (CALC)); MAGNESIUM 1.7 mg/dL (1.6-2.3); POTASSIUM 3.6 mmol/l (3.5-5.1); SODIUM 138 mmol/l (137-146)
--- NOTE | 2021-03-23 08:00 | NUR ---
SHIFT CHANGE REPORT, PT AWAKE ALERT AND ORIENTED LYING IN SUPINE POSITION IN BED, C/O ACHING ABD PAIN @ 10/04, ISSUE ADDRESSED. PT UP TO BSC AND C/O UNABLE TO BREATHE, ON ASSESSMENT BREATHS WERE NON-ALBORED AND EVEN, O2 SATS = 97-99% ON R/A. PT ADVISED TO CHANGE POSITION SLOWLY, ALSO GIVEN EDUCATION ON SMOKING CESSATION, CALL WHITE IN REACH, WILL CONTINUE TO MONITOR.
[2021-03-23] MEDS ORDERED: XARELTO10 MG PO (11:53)
[2021-03-23] MEDS ORDERED: FERROUS SULF325 M2 PO (11:55)
[2021-03-23] MEDS ORDERED: PROTONIX40 M2 PO (11:55)
[2021-03-23] MEDS ORDERED: LASIX40 MG PO (13:32)
--- NOTE | 2021-03-23 18:10 | NUR ---
Discharge instructions given. Patient verbalizes understanding of same. Discharged in fair condition via Wheelchair to Home with family. All belongings sent with pt.
== END 2021-03-23 18:03 | disposition home or self-care (01) ==
LOC: ED 06:39 → ED-I 12:00 → ED 12:12 → MS2 12:13 → ICU 21:56 → MS2 03-22 21:35 → ICU 03-22 21:35 → MS2 03-23 18:03
PROVIDERS: Emergency Medicine; Nurse Practitioner; ADMIT Emergency Medicine; ATTEND Internal Medicine
PROC: 30233N1 Transfusion of Nonautologous Red Blood Cells into Peripheral Vein, Percutaneous Approach (ICD-10-PCS; principal; 2021-03-20)
PROC: 30233N1 Transfusion of Nonautologous Red Blood Cells into Peripheral Vein, Percutaneous Approach (ICD-10-PCS; 2021-03-20)
PROC: 30233N1 Transfusion of Nonautologous Red Blood Cells into Peripheral Vein, Percutaneous Approach (ICD-10-PCS; 2021-03-23)
DX: D50.9 Iron deficiency anemia, unspecified (principal); I16.1 Hypertensive emergency; I11.0 Hypertensive heart disease with heart failure; I50.9 Heart failure, unspecified; R79.89 Other specified abnormal findings of blood chemistry; E87.6 Hypokalemia; R09.02 Hypoxemia; E83.42 Hypomagnesemia; J44.9 Chronic obstructive pulmonary disease, unspecified; I48.91 Unspecified atrial fibrillation; E78.5 Hyperlipidemia, unspecified; G89.4 Chronic pain syndrome; K44.9 Diaphragmatic hernia without obstruction or gangrene; F17.210 Nicotine dependence, cigarettes, uncomplicated; Z20.822 Contact with and (suspected) exposure to COVID-19
CPT/HCPCS: J1650; J1756; J3475; P9016; S0164

== ENCOUNTER 2021-04-02 21:10 | Emergency (ER) | payer MEDICARE, MEDICAID ==
[~2021-04-02] VITALS: Ht 162.6 cm; Wt 79.0 kg
[~2021-04-02 21:10] MED LIST changes: +FERROUS SULF325 M2 PO; +FUROSEMIDE20 MG PO; +LASIX40 MG PO; +PROTONIX40 M2 PO; +VENTOLIN HF1 IN; +XARELTO10 MG PO
[2021-04-02 23:44] LABS: BASO% 1 % (0-3); EOS% 2 % (0-8); IMMATURE GRANULOCYTES 0.3 % (0.0-5.0); LYMPH% 13 % (15-41); MEAN CORPUSCULAR HGB 21.6 pG CALC (26.0-32.0); MEAN CORPUSCULAR HGB CONC 29.1 g/dL CAL (32.0-36.0); MONO% 9 % (2-13); NEUT# 5.89 thou/uL (2.00-7.15); NEUT% 75 % (42-76); PLATELET COUNT 318 thou/uL (130-400); RED BLOOD COUNT 5.13 mill/uL (4.20-5.60)
[2021-04-02 23:44] LABS: URINE BLOOD DIPSTICK MODERATE (NEGATIVE); URINE COLOR YELLOW; URINE GLUCOSE - DIPSTICK NEGATIVE (NEGATIVE); URINE KETONE NEGATIVE (NEGATIVE); URINE PROTEIN - DIPSTICK TRACE mg/dL (NEG-TRACE); URINE UROBILINOGEN - DIPSTICK 0.2 E.U./dL (0.2)
[2021-04-02 23:45] LABS: HEMATOCRIT 38.2 % (37.0-47.0); HEMOGLOBIN 11.1 g/dl (12.0-16.0); MEAN CELL VOLUME 74.5 fL CALC (80.0-100.0)
[2021-04-02 23:47] LABS: URINE BILIRUBIN - DIPSTICK SMALL (NEGATIVE); URINE LEUK ESTERASE NEGATIVE (NEGATIVE); URINE NITRITE - DIPSTICK NEGATIVE (Negative)
[2021-04-02 23:52] LABS: ALBUMIN 3.4 g/dL (3.2-5.0); ALKALINE PHOSPHATASE 69 u/l (38-126); ANION GAP 11 (6-22 (CALC)); BILIRUBIN, TOTAL 0.7 mg/dL (0.0-1.4); BUN 22 mg/dL (8-23); BUN/CREATININE RATIO 33 (12-20 (CALC)); CARBON DIOXIDE 27 mmol/l (22-30); CHLORIDE 106 mmol/l (95-108); CREATININE 0.7 mg/dL (0.5-1.0); GFR > 60 ML/MIN (>=60 (CALC)); GFR FOR AFR.AMER. > 60 ML/MIN (>=60 (CALC)); POTASSIUM 4.1 mmol/l (3.5-5.1); SODIUM 140 mmol/l (137-146); TOTAL PROTEIN 6.4 g/dL (6.3-8.2)
[2021-04-02 23:52] LABS: URINE EPITHELIAL CELLS MODERATE EPI/hpf (0-FEW)
[2021-04-02 23:53] LABS: URINE BACTERIA FEW hpf
[2021-04-02 23:59] LABS: SGOT/AST 95 u/l (9-36)
[2021-04-03 00:09] LABS: MYOGLOBIN 1024 ng/mL (0 - 62)
[2021-04-03 02:21] VITALS: BP 157/77
== END 2021-04-03 01:55 | disposition short-term general hospital (02) ==
LOC: ED 21:10
PROVIDERS: Emergency Medicine
DX: I48.91 Unspecified atrial fibrillation (principal); R79.89 Other specified abnormal findings of blood chemistry; I11.0 Hypertensive heart disease with heart failure; I50.9 Heart failure, unspecified; J44.9 Chronic obstructive pulmonary disease, unspecified; I25.10 Atherosclerotic heart disease of native coronary artery without angina pectoris; F17.200 Nicotine dependence, unspecified, uncomplicated; Z79.01 Long term (current) use of anticoagulants; Z20.822 Contact with and (suspected) exposure to COVID-19